=== PATIENT | female | born 1930 | race African-American/Black ===

== ENCOUNTER 2016-10-15 11:26 | Inpatient (IN) | payer OTHER ==
[~2016-10-15] VITALS: Ht 149.9 cm; Wt 77.4 kg
--- NOTE | ~2016-10-15 | HC ---
[facility] [place] [address] CONSULTATION Name: ALEXIS RAMOS Room #: 546-P [facility] IN .R.#: [id number] Admission: 10/15/16 Attend Phys: Steph Carvajal Discharge: 10/18/16 Date of : 32 Report #: [id number] THIS REPORT FOR: //name// CC: Doc Sampson HISTORY OF PRESENT ILLNESS: The patient is an 86-year-old female admitted with 2-4 week history of coughing. She was diagnosed with a COPD exacerbation. Placed on IV Solu-Medrol, pulmonary medicine has been involved. She has been on room air. We are seeing her in rehabilitation medicine consultation. PAST MEDICAL HISTORY: Includes hypothyroidism, arthritis. MEDICATIONS: Please see the full medication listing. SOCIAL HISTORY: She has been smoking a cigarette a day. Previously to that, she had been smoking a pack a day. She has concerns regarding her . No other social history is currently available. REVIEW OF SYSTEMS: No current complaints of chest pain, shortness of breath or abdominal discomfort. She complains of generalized overall weakness in that she is too weak to go home. PHYSICAL EXAMINATION: GENERAL: An 86-year-old female in no obvious distress. VITAL SIGNS: Last recorded temperature 98.1, pulse 97, respirations 16, blood pressure 119/67. NEUROLOGIC: No focal calf swelling, functional range of motion of both upper and lower extremity, strength is a grade 4-/5. DTRs are trace to 1. She does have some baseline anxiety. She is otherwise cooperative. Some chronic degenerative changes. ASSESSMENT: An 86-year-old white female with the following problem list: 1. Chronic obstructive pulmonary disease exacerbation. 2. Asthma. 3. Anxiety. 4. Hypothyroidism. 5. Restless leg syndrome. 6. Generalized weakness and fatigue. PLAN: Agree with PT and OT to evaluate. She is not currently on any nasal prong O2. Further social history will need to be obtained. We will follow up with you regarding her rehab therapy needs. [facility] [address] [place] [address] CONSULTATION Name: ALEXIS RAMOS Room #: 546-P [facility] IN .R.#: [id number] Admission: 10/15/16 Attend Phys: Steph Carvajal Discharge: 10/18/16 Date of : 32 Report #: [id number] Thank you for asking us to assist in this patient's care. <ELECTRONICALLY SIGNED> By: Del Castillo MD 10/19/16 1518 1107 1753 Del Castillo MD /nt
--- NOTE | ~2016-10-15 | HC ---
[facility] [place] [address] CONSULTATION Name: ALEXIS RAMOS Room #: 546-P ADM IN M.R.#: [id number] Admission: 10/15/16 Attend Phys: Steph Carvajal Discharge: Date of : 32 Report #: [id number] THIS REPORT FOR: //name// CC: Doc Sampson DATE OF SERVICE: 10/15/2016 DATE OF SERVICE: 10/15/2016. REASON FOR CONSULTATION: Exacerbation of chronic obstructive pulmonary disease. ASSESSMENT: 1. Exacerbation of chronic obstructive pulmonary disease. 2. Hypothyroidism. 3. Anxiety. 4. Arthritis. 5. Eosinophilia. PLAN: Agree with antibiotics, corticosteroids, aerosol therapy. Deep venous thrombosis prophylaxis. We will check D-dimer if positive, we will do a CT scan as outpatient, may consider a screening CT scan. HISTORY OF PRESENT ILLNESS: An 86-year-old female comes in, relates for the last 2-4 weeks has had cough, shortness breath and some sputum production. No fever, chills or sweats. No definite chest pain or palpitations. PHYSICAL EXAMINATION: VITAL SIGNS: Temperature 98.3, pulse 88, respirations 18, blood pressure 122/74. EYES: Negative icterus. NECK: Trachea midline. LUNGS: Showed wheeze bilaterally. HEART: Regular. ABDOMEN: Benign. EXTREMITIES: Show no cyanosis or edema. NEUROLOGIC: She is alert and oriented. ALLERGIES: PENICILLIN, ASPIRIN. HOME MEDICATIONS: Included albuterol, Celebrex, hydrocodone, lorazepam, Symbicort, Singulair, prednisone, levothyroxine. FAMILY HISTORY: with lung disease, no other family member that she could remember. SOCIAL HISTORY: Positive tobacco, still smokes a cigarette a day, in the past a [facility] [address] [place] [address] CONSULTATION Name: ALEXIS RAMOS Room #: 546-P ADM IN .R.#: [id number] Admission: 10/15/16 Attend Phys: Steph Carvajal Discharge: Date of : 32 Report #: [id number] pack a day. No significant ETOH. REVIEW OF SYSTEMS: No current visual problems. Positive wheeze, cough, shortness of breath. No hemoptysis, hematemesis or hematuria, occasional peripheral edema. No definite chest pain or palpitations. No dysuria. Labs, x-rays reviewed. <ELECTRONICALLY SIGNED> By: Rufina Chadwick MD 10/17/16 0931 1710 1213 Rufina Chadwick MD /nt
--- NOTE | ~2016-10-15 | H ---
[address] [address] HISTORY AND PHYSICAL Name: ALEXIS RAMOS Room #: 546-P [facility] IN M.R.#: [id number] Admission: 10/15/16 Attend Phys: Steph Carvajal Discharge: 10/18/16 Date of : 32 Report #: [id number] THIS REPORT FOR: //name// CC: Doc Sampson DATE OF SERVICE: 10/15/2016 CHIEF COMPLAINT: Shortness of breath. HISTORY OF PRESENT ILLNESS: The patient was admitted from the office by Dr. Sampson for shortness of breath. She had a couple of days of cough, congestion, and generalized weakness. She had been trying outpatient treatment with steroids, but she failed and was admitted to the hospital. PAST MEDICAL HISTORY: Hypertension and COPD. PAST SURGICAL HISTORY: Noncontributory. FAMILY HISTORY: Noncontributory. SOCIAL HISTORY: No current alcohol or tobacco use. ALLERGIES: See the list. MEDICATIONS: Please see the nursing notes. REVIEW OF SYSTEMS: She denied headache, chest pain, fever, chills, nausea, vomiting, diarrhea, or constipation. OBJECTIVE: VITAL SIGNS: Please see the admission ____ vital signs. GENERAL: She is awake and alert. HEAD AND NECK: Unremarkable. LUNGS: Clear. HEART: Regular. ABDOMEN: Soft. EXTREMITIES: No edema. ASSESSMENT: Chronic obstructive pulmonary disease exacerbation. PLAN: She has been treated with steroids, antibiotics, nebulized treatments and [address] [place] [address] HISTORY AND PHYSICAL Name: ALEXIS RAMOS Room #: 546-P [facility] IN M.R.#: [id number] Admission: 10/15/16 Attend Phys: Steph Carvajal Discharge: 10/18/16 Date of : 32 Report #: [id number] pulmonary assessment. She has generalized weakness and will require group home rehabilitation. <ELECTRONICALLY SIGNED> By: Del Calderon MD 10/19/16 0959 1615 1656 Del Calderon MD /nt
--- NOTE | ~2016-10-15 | EKG ---
[address] [place] [address] ELECTROCARDIOGRAM REPORT Name: KHUSHI RAMOSJORIDara Regalado Room #: 546-P ADM IN M.R.#: [id number] Admission: 10/15/16 Attend Phys: Steph Carvajal Discharge: Date of : 32 Report #: [id number] THIS REPORT FOR: //name// [facility] Test Date: 2016-10-15 Test Time: 12:28:47 Pat Name: ALEXIS RAMOS Department: Room: 546 Gender: F Yard Coordinator: Wilber ALAN : 1930 Requested By: Doc Sampson Order Number: [id number] MD: Joe Arthur Measurements Intervals [place] Rate: 64 P: 53 ID: 181 QRS: 20 QRSD: 84 T: 34 QT: 405 QTc: 418 Interpretive Statements Sinus rhythm Low voltage, extremity leads Compared to ECG 06/07/2004 16:11:49 No significant change was found Electronically Signed On 10-17-2016 15:39:12 CDT by Joe Arthur [email or web address] <ELECTRONICALLY SIGNED> By: Joe Arthur MD, [facility] 10/17/16 1539 1228 1228 Joe Arthur MD, [facility] /EPI
[2016-10-15 11:46] VITALS: BP 133/69
[2016-10-15] MEDS ORDERED: VENTOLIN HFA 1818 GM INH (11:58)
[2016-10-15] MEDS ORDERED: PREDNISONE 10 M10 MG PO (11:59)
[2016-10-15] MEDS ORDERED: ATIVAN0.5 MG PO (12:00)
[2016-10-15] MEDS ORDERED: SINGULAIR 10 MG10 M1 PO (12:01)
[2016-10-15] MEDS ORDERED: SYMBICORT160 MCG/4. INH (12:02)
[2016-10-15] MEDS ORDERED: LEVOTHYROXIN0.175 MG PO (12:03)
[2016-10-15] MEDS ORDERED: CELEBREX 200 M200 M1 PO (12:04)
[2016-10-15 13:20] LABS: ABSOLUTE NEUTROPHILS 3.9 thou/uL (1.4-8.2); BASOPHILS 1.2 % (0.0-2.0); EOSINOPHILS 5.6 % (0.0-3.0); LYMPHOCYTES 29.7 % (24.0-44.0); MCH 28.1 pg (26.0-34.0); MCHC 32.5 g/dL (28.0-37.0); MCV 86.6 fL (80.0-100.0); PLATELET COUNT 286 thou/uL (150-400); POLYS 56.5 % (36.0-66.0); RBC 4.97 mil/uL (4.20-5.00); WBC 6.9 thou/uL (4.0-11.0)
[2016-10-15 13:21] LABS: MANUAL DIFF NO
[2016-10-15 13:32] LABS: ALBUMIN 3.4 g/dL (3.4-5.0); CALCIUM 9.4 mg/dL (8.5-10.1); CREATININE 0.9 mg/dL (0.6-1.0); TOTAL BILIRUBIN 0.6 mg/dL (<0.1-1.0); TOTAL PROTEIN 7.1 g/dL (6.4-8.2)
[2016-10-15 15:22] VITALS: BP 122/74
[2016-10-15 19:58] VITALS: BP 113/65
[2016-10-16 04:37] VITALS: BP 117/47
[2016-10-16 07:42] VITALS: BP 146/89
[2016-10-16 15:26] VITALS: BP 119/70
[2016-10-16 19:35] VITALS: BP 144/84
[2016-10-17 08:00] VITALS: BP 122/66
[2016-10-17 15:57] VITALS: BP 102/41
[2016-10-17 20:25] VITALS: BP 106/43
[2016-10-18 03:41] VITALS: BP 125/71
[2016-10-18 07:50] VITALS: BP 119/66
[2016-10-18] MEDS ORDERED: AZITHROMYCIN 2250 MG PO (10:00)
[2016-10-18] MEDS ORDERED: MUCINEX TA600 MG/TA1 PO (10:01)
[2016-10-18] MEDS ORDERED: MIRALAX17 GM PO (10:01)
[2016-10-18] MEDS ORDERED: DUONEB 2.5-0.5 M3 ML INH (10:01)
[2016-10-18] MEDS ORDERED: PREDNISONE 20 M20 MG PO (10:03)
[2016-10-18 10:35] LABS: MAGNESIUM 2.1 mg/dL (1.8-2.4); POTASSIUM 4.2 mmol/L (3.5-5.1)
== END 2016-10-18 16:50 | DRG 190 ==
LOC: 5S 11:26
PROVIDERS: Internal Medicine; Internal Medicine Pulmonary Disease
DX: J44.1 Chronic obstructive pulmonary disease with (acute) exacerbation (principal); E43 Unspecified severe protein-calorie malnutrition; E03.9 Hypothyroidism, unspecified; F41.9 Anxiety disorder, unspecified; D72.1 Eosinophilia; F17.210 Nicotine dependence, cigarettes, uncomplicated; G25.81 Restless legs syndrome; I10 Essential (primary) hypertension; M19.011 Primary osteoarthritis, right shoulder; Z88.6 Allergy status to analgesic agent; Z88.0 Allergy status to penicillin; Z83.6 Family history of other diseases of the respiratory system; Z79.899 Other long term (current) drug therapy; Z68.34 Body mass index [BMI] 34.0-34.9, adult
CPT/HCPCS: 10089

== ENCOUNTER 2017-07-04 08:58 | Inpatient (IN) | payer OTHER, MEDICARE ==
[~2017-07-04] VITALS: Ht 152.4 cm; Wt 70.8 kg
--- NOTE | ~2017-07-04 | EKG ---
[address] [address] ELECTROCARDIOGRAM REPORT Name: KHUSHI RAMOSNORA Regalado Room #: 170-9 ADM IN .R.#: [id number] Admission: 07/04/17 Attend Phys: Griffin Bartlett MD Discharge: Date of : 32 Report #: [id number] THIS REPORT FOR: //name// [facility] ED Test Date: 2017-07-04 Test Time: 10:15:22 Pat Name: ALEXIS RAMOS Department: Room: 170 Gender: F Tool Analyst: [facility] : 1930 Requested By: Suraj Kahn Order Number: [id number] MD: Deangelo Perez Measurements Intervals [place] Rate: 67 P: 55 NM: 185 QRS: 9 QRSD: 87 T: 29 QT: 418 QTc: 442 Interpretive Statements Sinus rhythm Minimal ST elevation, anterolateral leads Compared to ECG 10/15/2016 12:28:47 ST (T wave) deviation now present Electronically Signed On 07-04-2017 15:05:32 CERTIFIED MORTICIAN by Deangelo Preez [email or web address] <ELECTRONICALLY SIGNED> By: Deangelo Perez MD 07/04/17 1505 1015 1015 Deangelo Perez MD /NASIMA
--- NOTE | ~2017-07-04 | HC ---
[facility] [place] [address] CONSULTATION Name: ALEXIS RAMOS Room #: 430-P ADM IN M.R.#: [id number] Admission: 07/04/17 Attend Phys: Griffin Bartlett MD Discharge: Date of : 32 Report #: [id number] THIS REPORT FOR: //name// CC: Griffin Espinoza DATE OF SERVICE: 07/04/2017 PULMONARY CONSULTATION PRIMARY CARE PHYSICIAN: Claudio Espinoza MD REFERRING PHYSICIAN: Griffin Bartlett MD REASON FOR REFERRAL: Dyspnea. HISTORY OF PRESENT ILLNESS: The patient is an 86-year-old -[place]ian female who presents to the Emergency Room with dyspnea. A pulmonary consultation was requested. The patient states that she has had asthma for many years. She has not seen a forestry farm laborer in the past. She has been cared for primarily by Dr. Espinoza. According to the patient, she is also on home oxygen at 2-3 liters. She notes that she has been more short of breath for a long time, but worsening more recently for the past week. She also complained of myalgias and weakness. She has some mild cough, but minimally productive of sputum. Otherwise, denies any night sweats, fever or chills. 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 PAST SURGICAL HISTORY: Include hysterectomy, partial thyroidectomy, leading to hypothyroidism, knee surgery, status post bilateral breast reduction in 1987. ALLERGIES: ASPIRIN CAUSES GI UPSET, PENICILLIN CAUSES HIVES. HOME MEDICATIONS: Ventolin, Singulair, Symbicort 160 mcg 2 puffs twice a day, Synthroid, Celebrex, Tylenol, Lasix, Neurontin, prednisone 10 mg once a day, Spiriva, Lexapro. FAMILY HISTORY: Noncontributory. SOCIAL HISTORY: She has smoked in the past, but has quit some time ago. [facility] [address] [place] [address] CONSULTATION Name: ALEXIS RAMOS Room #: 430-P [facility] IN M..#: [id number] Admission: 07/04/17 Attend Phys: Griffin Bartlett MD Discharge: Date of : 32 Report #: [id number] any alcohol use. REVIEW OF SYSTEMS: As mentioned above, otherwise 10-point system review negative. PHYSICAL EXAMINATION: GENERAL: She is awake, alert, in mild distress due to dyspnea. VITAL SIGNS: Temperature is 98 degrees Fahrenheit, pulse is 73, respiratory rate is 18, blood pressure 120/70 mmHg, saturation is 98%. HEENT: Normocephalic, atraumatic. NECK: Supple, without any lymphadenopathy or thyromegaly. CHEST: Breath sounds are fair with mild to moderate bilateral expiratory wheezes. No rales. CARDIOVASCULAR: Normal S1, S2. There is no murmur or gallop. There is no JVD. There is no carotid bruit. Pulses are 2+/4+ bilaterally. ABDOMEN: Soft, nontender, no organomegaly or masses felt. GENITOURINARY: Deferred. RECTAL: Deferred. EXTREMITIES: There is no edema, cyanosis or clubbing. LABORATORY DATA: Portable chest x-ray is clear. Influenza A and B antigen is negative. Electrolytes are normal. Renal function normal. WBC 5800, hemoglobin 13.0, platelets are normal. IMPRESSION: 1. Progressive dyspnea in this 86-year-old -[place]ian female with apparent long history of asthma. She has smoked in the past. Etiology likely due to exacerbation of asthma/chronic obstructive pulmonary disease overlap. 2. History of asthma/chronic obstructive pulmonary disease, apparently on oxygen dependent at home. According to the patient, she has been short of breath for some time for few years now whenever the patient is felt to be difficult to control asthma. May need further workup. 3. Remote history of tobacco use. 4. Hypothyroidism. 5. Chronic corticosteroids due to pulmonary impairment. 6. Moderate obesity whenever the patient may have subclinical reflux disease. RECOMMENDATION: We would suggest broad spectrum antibiotics, corticosteroids, bronchodilators. DVT and GI prophylaxis recommended. Once stable as an outpatient, I believe the patient would benefit from outpatient followup regarding questionable persistent bronchospasm. She should also be screened for possible sleep disorder given obesity along with chronic dyspnea. [address] [address] CONSULTATION Name: ALEXIS RAMOS Room #: 430-P [facility] IN .R.#: [id number] Admission: 07/04/17 Attend Phys: Griffin Bartlett MD Discharge: Date of : 32 Report #: [id number] Thank you for this consultation. <ELECTRONICALLY SIGNED> By: Kaveh Metz MD 07/04/17 2120 1725 Kaveh Metz MD /nt
[~2017-07-04 08:58] MED LIST: ATIVAN0.5 MG PO; AZITHROMYCIN 2250 MG PO; CELEBREX 200 M200 M1 PO; DUONEB 2.5-0.5 M3 ML INH; LASIX 20 MG TAB20 MG PO; LEVOTHYROXIN0.175 MG PO; LIDODERM 5%1 PATC1 TRANSDERM; MIRALAX17 GM PO; MUCINEX TA600 MG/TA1 PO; NORCO 5-325 TA1 EACH PO; PERCOCET 5-3251 EACH PO; POTASSIUM CHLO10 MEQ PO; PREDNISONE 10 M10 MG PO; PREDNISONE 20 M20 MG PO; SENNA8.6 MG PO; SINGULAIR 10 MG10 M1 PO; SYMBICORT160 MCG/4. INH; TRAZODONE HCL50 MG PO; TYLENOL325 MG PO; VENTOLIN HFA 1818 GM INH; VOLTAREN GEL 1100 G2 TOP
[2017-07-04 08:59] VITALS: BP 126/55
[2017-07-04 09:45] LABS: ABSOLUTE NEUTROPHILS 2.9 thou/uL (1.4-8.2); BASOPHILS 1.5 % (0.0-2.0); EOSINOPHILS 6.8 % (0.0-3.0); HEMATOCRIT 39.5 % (37.0-47.0); LYMPHOCYTES 32.5 % (24.0-44.0); MCV 84.9 fL (80.0-100.0); MONOCYTES 8.3 % (1.0-8.0); PLATELET COUNT 324 thou/uL (150-400); POLYS 50.9 % (36.0-66.0); RBC 4.65 mil/uL (4.20-5.00); RDW 15.2 % (10.5-14.5); WBC 5.8 thou/uL (4.0-11.0)
[2017-07-04 09:54] LABS: ANION GAP 6 mmol/L (7-16); BUN 12 mg/dL (7-18); CALCIUM 8.9 mg/dL (8.5-10.1); CHLORIDE 103 mmol/L (98-107); CO2 28 mmol/L (21-32); CREATININE 0.7 mg/dL (0.6-1.0); GLUCOSE 86 mg/dL (74-106); POTASSIUM 4.8 mmol/L (3.5-5.1); SODIUM 137 mmol/L (136-145)
[2017-07-04 10:04] LABS: TROPONIN-I < 0.04 ng/mL (<0.06)
[2017-07-04] MEDS ORDERED: GABAPENTIN 100100 MG PO (11:04)
[2017-07-04] MEDS ORDERED: LEXAPRO 10 MG T10 M2 PO (11:05)
[2017-07-04] MEDS ORDERED: SPIRIVA INH (11:05)
[2017-07-04] MEDS ORDERED: PREDNISONE 10 M10 MG PO (11:05)
[2017-07-04 18:44] VITALS: BP 102/66
[2017-07-04 20:23] VITALS: BP 106/62
[2017-07-04 20:38] VITALS: BP 127/80
[2017-07-05 04:03] VITALS: BP 139/78
[2017-07-05 06:41] LABS: HEMATOCRIT 38.5 % (37.0-47.0); HEMOGLOBIN 12.6 gm/dL (12.0-15.0); MCH 27.7 pg (26.0-34.0); MCHC 32.6 g/dL (28.0-37.0); MCV 84.9 fL (80.0-100.0); RBC 4.54 mil/uL (4.20-5.00); RDW 14.6 % (10.5-14.5)
[2017-07-05 06:51] LABS: CALCIUM 9.1 mg/dL (8.5-10.1); CREATININE 0.9 mg/dL (0.6-1.0); MAGNESIUM 2.1 mg/dL (1.8-2.4); POTASSIUM 4.3 mmol/L (3.5-5.1)
[2017-07-05 07:35] VITALS: BP 134/94
[2017-07-05 08:44] LABS: BE(vivo) 3.1 mmol/L (-2 to +3); HCO3 28.3 mmol/L (22.0-26.0); PCO2 45.1 mmHg (35.0-45.0); PO2 141.7 mmHg (80.0-100.0); pH 7.415 (7.360-7.450); sO2 98.8 % (92.0-98.0)
[2017-07-05 17:07] VITALS: BP 125/75
[2017-07-05 21:30] VITALS: BP 111/72
[2017-07-06 03:56] LABS: ALBUMIN 2.8 g/dL (3.4-5.0); MAGNESIUM 2.2 mg/dL (1.8-2.4); POTASSIUM 4.4 mmol/L (3.5-5.1); TOTAL BILIRUBIN 0.3 mg/dL (<0.1-1.0); TOTAL PROTEIN 6.3 g/dL (6.4-8.2)
[2017-07-06 04:10] LABS: HEMATOCRIT 38.1 % (37.0-47.0); HEMOGLOBIN 12.7 gm/dL (12.0-15.0); MCH 28.2 pg (26.0-34.0); MCHC 33.4 g/dL (28.0-37.0); MCV 84.5 fL (80.0-100.0); RBC 4.51 mil/uL (4.20-5.00); RDW 14.8 % (10.5-14.5); WBC 5.9 thou/uL (4.0-11.0)
[2017-07-06 04:26] VITALS: BP 126/73
[2017-07-06 04:48] LABS: TSH 0.618 uIU/mL (0.358-3.740)
[2017-07-06 08:18] VITALS: BP 120/67
[2017-07-06 20:00] VITALS: BP 97/49
[2017-07-06 22:11] LABS: GLYCOHEMOGLOBIN (HGB A1C) 5.5 % (4.8-5.6)
[2017-07-07 00:06] LABS: ADENOVIRUS Negative (Negative); INFLUENZA A Negative (Negative); INFLUENZA B Negative (Negative); METAPNEUMOVIRUS Negative (Negative); PARAINFLUENZA 1 Negative (Negative); PARAINFLUENZA 2 Negative (Negative); PARAINFLUENZA 3 Negative (Negative); RHINOVIRUS Negative (Negative); RSV A Negative (Negative); RSV B Negative (Negative)
[2017-07-07 04:00] VITALS: BP 136/66
[2017-07-07 06:35] LABS: HEMATOCRIT 37.7 % (37.0-47.0); HEMOGLOBIN 12.2 gm/dL (12.0-15.0); MCH 27.5 pg (26.0-34.0); MCHC 32.4 g/dL (28.0-37.0); MCV 84.9 fL (80.0-100.0); RBC 4.44 mil/uL (4.20-5.00); RDW 14.7 % (10.5-14.5); WBC 7.2 thou/uL (4.0-11.0)
[2017-07-07 06:44] LABS: CALCIUM 8.7 mg/dL (8.5-10.1); CREATININE 0.8 mg/dL (0.6-1.0); MAGNESIUM 2.2 mg/dL (1.8-2.4); POTASSIUM 4.4 mmol/L (3.5-5.1)
[2017-07-07 07:30] VITALS: BP 136/71
[2017-07-07 16:12] VITALS: BP 115/63
[2017-07-07 19:43] VITALS: BP 136/61
[2017-07-08 04:10] VITALS: BP 128/65
[2017-07-08 07:07] LABS: HEMATOCRIT 38.2 % (37.0-47.0); HEMOGLOBIN 12.6 gm/dL (12.0-15.0); MCV 85.1 fL (80.0-100.0); RBC 4.49 mil/uL (4.20-5.00); RDW 14.7 % (10.5-14.5); WBC 5.9 thou/uL (4.0-11.0)
[2017-07-08 07:23] VITALS: BP 136/74
[2017-07-08 07:23] LABS: CALCIUM 8.9 mg/dL (8.5-10.1); CREATININE 0.9 mg/dL (0.6-1.0); MAGNESIUM 2.4 mg/dL (1.8-2.4); POTASSIUM 4.2 mmol/L (3.5-5.1)
[2017-07-08] MEDS ORDERED: MUCINEX600 MG PO (12:28)
[2017-07-08] MEDS ORDERED: VITAMIN D1000 UNI1 PO (12:29)
[2017-07-08] MEDS ORDERED: PREDNISONE 10 M10 MG PO (12:31)
[2017-07-08] MEDS ORDERED: LEVAQUIN 750 M750 MG PO (12:44)
== END 2017-07-08 15:02 | DRG 189 ==
LOC: ER 08:58 → 4E 10:50 → EROBS 10:50 → 4E 20:25
PROVIDERS: Internal Medicine; Internal Medicine Pulmonary Disease; Physician Assistant; Registered Nurse
DX: J96.20 Acute and chronic respiratory failure, unspecified whether with hypoxia or hypercapnia (principal); J44.1 Chronic obstructive pulmonary disease with (acute) exacerbation; F11.20 Opioid dependence, uncomplicated; E03.9 Hypothyroidism, unspecified; Z96.659 Presence of unspecified artificial knee joint; G89.29 Other chronic pain; M54.9 Dorsalgia, unspecified; E66.01 Morbid (severe) obesity due to excess calories; F17.210 Nicotine dependence, cigarettes, uncomplicated; I10 Essential (primary) hypertension; F32.9 Major depressive disorder, single episode, unspecified; J06.9 Acute upper respiratory infection, unspecified; M25.812 Other specified joint disorders, left shoulder; Z90.710 Acquired absence of both cervix and uterus; Z88.6 Allergy status to analgesic agent; Z88.0 Allergy status to penicillin; Z68.30 Body mass index [BMI] 30.0-30.9, adult; Z79.899 Other long term (current) drug therapy; Z79.52 Long term (current) use of systemic steroids
CPT/HCPCS: 10084

== ENCOUNTER 2017-08-16 15:20 | Inpatient (IN) | payer OTHER, MEDICARE ==
[~2017-08-16] VITALS: Ht 149.9 cm; Wt 78.9 kg
--- NOTE | ~2017-08-16 | HC ---
[facility] [place] [address] CONSULTATION Name: ALEXIS RAMOS Room #: 354-P ADM IN ..#: [id number] Admission: 08/16/17 Attend Phys: Sergei Gonzales DO Discharge: Date of : 32 Report #: [id number] THIS REPORT FOR: //name// CC: Sergei Espinoza DATE OF SERVICE: 08/17/2017 PULMONARY CONSULTATION REFERRAL PHYSICIAN: Dr. Gonzales. REASON FOR REFERRAL: Dyspnea. HISTORY OF PRESENT ILLNESS: The patient is an 87-year-old female who presents to the Emergency Room with dyspnea. A pulmonary consultation was requested. The patient is known to this physician. She was last hospitalized in June of this year with exacerbation of asthma/COPD. She states that she was doing fairly well until for the past week when she has got increasingly short of breath. When she was last hospitalized, she was transferred to [facility]. She was subsequently discharged home about a week ago. For the past week, she has noticed increasing dyspnea, bronchospasm. Otherwise, she denies any fever, night sweats, chills, chest pain or productive cough. Chest x-ray on admission was clear. PAST MEDICAL HISTORY: Notable for asthma/COPD overlap, the patient has smoked in the past, but quit many years ago, chronic back pain due to sciatica, on chronic narcotics, hypothyroidism. PAST SURGICAL HISTORY: Include hysterectomy, partial thyroidectomy, past knee surgery, bilateral breast reduction in 1997. ALLERGIES: ASPIRIN, WHICH CAUSES GI UPSET, PENICILLIN CAUSES HIVES. MEDICATIONS: Reviewed in the MAR. FAMILY HISTORY: Noncontributory. SOCIAL HISTORY: The patient has smoked, but quit many years ago. Otherwise, denies any alcohol use. [facility] [address] [place] [address] CONSULTATION Name: KHUSHI RAMOSJORIE Fabricio Room #: 354-P [facility] IN ..#: [id number] Admission: 08/16/17 Attend Phys: Sergei Gonzales DO Discharge: Date of : 32 Report #: [id number] REVIEW OF SYSTEMS: As mentioned above, otherwise 10-point system review negative. PHYSICAL EXAMINATION: GENERAL: She is awake, alert, in no apparent distress. VITAL SIGNS: Temperature 97.8 degrees Fahrenheit, pulse is 76, respiratory rate is 20, blood pressure 154/96 mmHg, saturation is 100%. HEENT: Normocephalic, atraumatic. NECK: Supple, no lymphadenopathy or thyromegaly. CHEST: Breath sounds are fair bilaterally with mild expiratory wheezes. CARDIOVASCULAR: Normal S1, S2. There are no murmurs or gallop. There is no JVD. There is no carotid bruit. Pulses are 2+/4+ bilaterally. ABDOMEN: Soft, nontender, no organomegaly or masses felt. GENITOURINARY: Deferred. RECTAL: Deferred. EXTREMITIES: There is no edema, cyanosis or clubbing. LABORATORY DATA: Chest x-ray again as mentioned above is clear. A 2D echocardiogram was grossly unremarkable. Ejection fraction of 55-60%. Pulmonary artery pressure is 30-35. Influenza A and B is negative. Ultrasound of the lower extremities negative. EKG was unremarkable. Electrolytes are normal. Liver functions are normal. WBC 7500, hemoglobin 11.6, platelets normal, no evidence of bandemia, increased eosinophil count is noted. IMPRESSION: 1. Acute hypoxic respiratory failure in this 87-year-old female due to exacerbation of chronic obstructive pulmonary disease/asthma overlap. No evidence of obvious pneumonia at this time. 2. Remote history of tobacco use. 3. Chronic steroids. 4. Hypothyroidism. RECOMMENDATION: I agree with plans, corticosteroids, bronchodilators and broad spectrum antibiotics. Deep venous thrombosis and gastrointestinal prophylaxis recommended. Thank you for this consultation. <ELECTRONICALLY SIGNED> By: Kaveh Metz MD 08/18/17 1311 1523 1824 Kaveh Metz MD /nt
--- NOTE | ~2017-08-16 | EKG ---
[place] [address] [facility] [place] [address] ELECTROCARDIOGRAM REPORT Name: ALEXIS RAMOS Room #: [facility]#: [id number] Admission: 08/16/17 Attend Phys: Discharge: Date of : 32 Report #: [id number] THIS REPORT FOR: //name// [facility] ED Test Date: 2017-08-16 Test Time: 16:27:25 Pat Name: ALEXIS RAMOS Department: Room: Gender: F Drum Sprayer: MZOOK : 1930 Requested By: Montserrat Sampson Order Number: [id number] MD: Joe Arthur Measurements Intervals [place] Rate: 97 P: 63 MD: 164 QRS: 11 QRSD: 78 T: 31 QT: 349 QTc: 444 Interpretive Statements Sinus rhythm No significant abnormality Compared to ECG 07/04/2017 10:15:22 No significant change was. Electronically Signed On 08-16-2017 17:51:22 CDT by Joe Arthur [email or web address] <ELECTRONICALLY SIGNED> By: Joe Arthur MD, [facility] 08/16/17 1751 1627 1627 Joe Arthur MD, FACC /EPI
--- NOTE | ~2017-08-16 | 2DMMODE ---
[facility] [address] [place] [address] 2 D/M-MODE ECHOCARDIOGRAM Name: ALEXIS RAMOS Room #: 354-P [facility] IN ..#: [id number] Admission: 08/16/17 Attend Phys: Sergei Gonzales, Discharge: Date of : 32 Date of Service: 08/17/17 0957 Report #: [id number] THIS REPORT FOR: //name// APPROVED REPORT Study performed: 08/17/2017 07:59:45 EXAM: Comprehensive 2D, Doppler, and color-flow Echocardiogram Patient Location: Bedside Room #: 354 Status: routine BSA: 1.74 HR: 65 bpm BP: 159/87 mmHg Rhythm: NSR Other Information Study Quality: Good Indications Edema, short of air. Hx: COPD 2D Dimensions RVDd: 36.71 mm LVEF(%): 64.73 (>50%) IVSd: 10.44 (7-11mm) LVOT Diam: 19.91 (18-24mm) LVDd: 43.05 mm PWd: 10.49 (7-11mm) Ascending Ao: 33.65 (22-36mm) LVDs: 27.94 (25-40mm) Aortic Root: 35.73 mm Larsen's LVEF: 64.73 % Volumes Left Atrial Volume (Systole) Single Plane 4CH: 54.64 mL Single Plane 2CH: 48.30 mL LA ESV Index: 33.00 mL/m2 Aortic Valve AoV Peak Ortiz.: 1.50 m/s AO Peak Gr.: 9.74 mmHg LVOT Max P.09 mmHg LVOT Max V: 1.01 m/s BETHANY Vmax: 2.10 cm2 Mitral Valve E/A Ratio: 0.9 MV Decel. Time: 204.87 ms [facility] [place] [address] 2 D/M-MODE ECHOCARDIOGRAM Name: ALEXIS RAMOS Room #: 354-P [facility] IN ..#: [id number] Admission: 08/16/17 Attend Phys: Sergei Gonzales, Discharge: Date of : 32 Date of Service: 08/17/17 0957 Report #: [id number] MV E Max Ortiz.: 0.97 m/s MV A Ortiz.: 1.11 m/s MV PHT: 59.41 ms IVRT: 87.66 ms Pulmonary Valve PV Peak Ortiz.: 0.93 m/s PV Peak Gr.: 3.45 mmHg Pulmonary Vein P Vein S: 0.79 m/s P Vein A: 0.38 m/s P Vein D: 0.60 m/s P Vein A Dur.: 133.8 msec P Vein S/D Ratio: 1.32 Tricuspid Valve TR Peak Ortiz.: 2.35 m/s RAP Estimate: 10.00 mmHg TR Peak Gr.: 22.13 mmHg PA Pressure: 32.00 mmHg Left Ventricle The left ventricle is normal size. There is normal LV segmental wall motion. There is normal left ventricular wall thickness. Left ventricular systolic function is normal. LVEF is 55-60%. Mild diastolic dysfunction is present (impaired relaxation pattern). Right Ventricle The right ventricle is normal size. The right ventricular systolic function is normal. Atria Left atrium is at the upper limits of normal. Right atrium is at the upper limits of normal. Aortic Valve The Aortic valve is sclerotic. No aortic regurgitation is present. There is no aortic valvular stenosis. Mitral Valve The mitral valve is normal in structure. Trace mitral regurgitation. No evidence of mitral valve stenosis. Tricuspid Valve The tricuspid valve is normal in structure. Trace tricuspid regurgitation. Estimated PAP is 30-35mmHg. Pulmonic Valve [address] [address] 2 D/M-MODE ECHOCARDIOGRAM Name: ALEXIS RAMOS Room #: 354-P [facility] IN [facility]#: [id number] Admission: 08/16/17 Attend Phys: Sergei Gonzales, Discharge: Date of : 32 Date of Service: 08/17/17 0957 Report #: [id number] The pulmonary valve is normal in structure. Trace to mild pulmonic regurgitation. Great Vessels The aortic root is normal in size. The ascending aorta is normal in size. IVC measures at the upper limits of normal and collapses <50% with inspiration. Pericardium There is no pericardial effusion. <Conclusion> The left ventricle is normal size. LVEF is 55-60%. The Aortic valve is sclerotic. The mitral valve is normal in structure. Trace mitral regurgitation. The tricuspid valve is normal in structure. Trace tricuspid regurgitation. Estimated PAP is 30-35mmHg. The pulmonary valve is normal in structure. Trace to mild pulmonic regurgitation. There is no pericardial effusion. <ELECTRONICALLY SIGNED> By: Josesito Colmenares MD 08/17/17 0957 0957 Josesito Colmenares MD /INF
[~2017-08-16 15:20] MED LIST changes: +GABAPENTIN 100100 MG PO; +LEVAQUIN 750 M750 MG PO; +LEXAPRO 10 MG T10 M2 PO; +MUCINEX600 MG PO; +SPIRIVA INH; +VITAMIN D1000 UNI1 PO
[2017-08-16 15:28] VITALS: BP 128/74
[2017-08-16 16:41] LABS: ABSOLUTE NEUTROPHILS 4.4 thou/uL (1.4-8.2); BASOPHILS 1.5 % (0.0-2.0); EOSINOPHILS 8.2 % (0.0-3.0); HEMATOCRIT 35.7 % (37.0-47.0); HEMOGLOBIN 11.6 gm/dL (12.0-15.0); LYMPHOCYTES 19.5 % (24.0-44.0); MCH 27.6 pg (26.0-34.0); MCHC 32.4 g/dL (28.0-37.0); MCV 85.2 fL (80.0-100.0); PLATELET COUNT 323 thou/uL (150-400); POLYS 58.8 % (36.0-66.0); RBC 4.19 mil/uL (4.20-5.00); RDW 16.1 % (10.5-14.5); WBC 7.5 thou/uL (4.0-11.0)
[2017-08-16 17:00] LABS: ANION GAP 4 mmol/L (7-16); BUN 7 mg/dL (7-18); CALCIUM 9.1 mg/dL (8.5-10.1); CHLORIDE 106 mmol/L (98-107); CO2 30 mmol/L (21-32); CREATININE 0.7 mg/dL (0.6-1.0); GLUCOSE 86 mg/dL (74-106); POTASSIUM 3.6 mmol/L (3.5-5.1); SODIUM 140 mmol/L (136-145)
[2017-08-16 17:07] LABS: ALBUMIN 3.1 g/dL (3.4-5.0); SGOT 18 U/L (15-37); SGPT 17 U/L (30-65); TOTAL BILIRUBIN 0.3 mg/dL (<0.1-1.0); TOTAL PROTEIN 6.7 g/dL (6.4-8.2); TROPONIN-I < 0.04 ng/mL (<0.06)
[2017-08-16 19:46] VITALS: BP 112/53
[2017-08-17 00:29] VITALS: BP 137/70
[2017-08-17 04:12] VITALS: BP 159/87
[2017-08-17 05:31] LABS: BASOPHILS 0.2 % (0.0-2.0); HEMATOCRIT 37.4 % (37.0-47.0); LYMPHOCYTES 7.6 % (24.0-44.0); MCH 27.6 pg (26.0-34.0); MCHC 32.2 g/dL (28.0-37.0); MCV 85.8 fL (80.0-100.0); PLATELET COUNT 328 thou/uL (150-400); POLYS 91.2 % (36.0-66.0); RBC 4.36 mil/uL (4.20-5.00); RDW 15.7 % (10.5-14.5); WBC 6.6 thou/uL (4.0-11.0)
[2017-08-17 05:44] LABS: CREATININE 1.1 mg/dL (0.6-1.0); POTASSIUM 4.2 mmol/L (3.5-5.1)
[2017-08-17 08:00] VITALS: BP 154/96
[2017-08-17 16:00] VITALS: BP 149/84
[2017-08-17 19:19] VITALS: BP 142/75
[2017-08-18 03:25] VITALS: BP 138/84
[2017-08-18 07:07] LABS: HEMATOCRIT 34.9 % (37.0-47.0); HEMOGLOBIN 11.4 gm/dL (12.0-15.0); MCH 27.5 pg (26.0-34.0); MCHC 32.6 g/dL (28.0-37.0); MCV 84.5 fL (80.0-100.0); RBC 4.14 mil/uL (4.20-5.00); RDW 15.7 % (10.5-14.5); WBC 8.4 thou/uL (4.0-11.0)
[2017-08-18 07:23] LABS: CALCIUM 8.8 mg/dL (8.5-10.1); CREATININE 0.9 mg/dL (0.6-1.0); POTASSIUM 4.1 mmol/L (3.5-5.1)
[2017-08-18 07:40] VITALS: BP 164/86
[2017-08-18 11:35] VITALS: BP 150/79
[2017-08-18 13:39] VITALS: BP 127/74
[2017-08-18 20:28] VITALS: BP 130/61
[2017-08-19 08:10] VITALS: BP 127/67
[2017-08-19 20:33] VITALS: BP 119/63
[2017-08-20 07:15] VITALS: BP 147/84
[2017-08-20 07:15] LABS: ABSOLUTE NEUTROPHILS 6.9 thou/uL (1.4-8.2); HEMATOCRIT 37.3 % (37.0-47.0); LYMPHOCYTES 5.4 % (24.0-44.0); MCH 27.3 pg (26.0-34.0); MCHC 32.1 g/dL (28.0-37.0); MCV 85.1 fL (80.0-100.0); MONOCYTES 3.3 % (1.0-8.0); PLATELET COUNT 309 thou/uL (150-400); POLYS 91.3 % (36.0-66.0); RBC 4.38 mil/uL (4.20-5.00); RDW 15.8 % (10.5-14.5); WBC 7.5 thou/uL (4.0-11.0)
[2017-08-20 07:20] LABS: CALCIUM 8.7 mg/dL (8.5-10.1); POTASSIUM 4.3 mmol/L (3.5-5.1)
[2017-08-20] MEDS ORDERED: AMLODIPINE BESY10 MG PO (07:37)
[2017-08-20 09:54] VITALS: BP 147/84
[2017-08-20 10:52] VITALS: BP 147/84
== END 2017-08-20 14:24 | disposition home health service (06) | DRG 291 ==
LOC: ER 15:20 → 3W 18:23 → EROBS 18:23 → 3W 20:14 → SICU 08-18 13:44
PROVIDERS: Family Medicine; Internal Medicine Pulmonary Disease; Physician Assistant
PROC: B24BZZ4 Ultrasonography of Heart with Aorta, Transesophageal (ICD-10-PCS; principal; 2017-08-17)
DX: I50.31 Acute diastolic (congestive) heart failure (principal); J96.01 Acute respiratory failure with hypoxia; J44.1 Chronic obstructive pulmonary disease with (acute) exacerbation; E89.0 Postprocedural hypothyroidism; F32.9 Major depressive disorder, single episode, unspecified; Z87.891 Personal history of nicotine dependence; Z90.710 Acquired absence of both cervix and uterus; Z79.899 Other long term (current) drug therapy; Z88.0 Allergy status to penicillin; Z88.6 Allergy status to analgesic agent
CPT/HCPCS: 10879; 15002

== ENCOUNTER 2017-09-01 08:17 | Inpatient (IN) | payer OTHER, MEDICARE ==
[~2017-09-01] VITALS: Ht 149.9 cm; Wt 81.2 kg
[2017-09-01] VITALS (8 sets, daily range): BP systolic 124–159; BP diastolic 69–89
--- NOTE | ~2017-09-01 | EKG ---
[place] [address] [facility] [facility] [place] [address] ELECTROCARDIOGRAM REPORT Name: KHUSHI RAMOSJORAMON Regalado Room #: [facility]#: [id number] Admission: 09/01/17 Attend Phys: Discharge: Date of : 32 Report #: [id number] THIS REPORT FOR: //name// [facility] ED Test Date: 2017-09-01 Test Time: 08:35:17 Pat Name: ALEXIS RAMOS Department: Room: Gender: F Administrative Resources Associate: SHELLY : 1930 Requested By: Jessy Jacobson Order Number: [id number] MD: Joe Arthur Measurements Intervals [place] Rate: 85 P: 59 [place]: 169 QRS: 7 QRSD: 75 T: 34 QT: 373 QTc: 444 Interpretive Statements Sinus rhythm No significant abnormality Compared to ECG 08/16/2017 16:27:25 No significant changes Electronically Signed On 09-01-2017 8:57:54 CDT by Joe Arthur [email or web address] <ELECTRONICALLY SIGNED> By: Joe Arthur MD, [facility] 09/01/17 0857 0835 0835 Joe Arthur MD, FACC /EPI
--- NOTE | ~2017-09-01 | EKG ---
[place] [address] [facility] [place] [address] ELECTROCARDIOGRAM REPORT Name: KHUSHI RAMOSNORA Regalado Room #: 352-P ADM IN M.R.#: [id number] Admission: 09/01/17 Attend Phys: Sergei Gonzales DO Discharge: Date of : 32 Report #: [id number] THIS REPORT FOR: //name// [facility] Test Date: 2017-09-01 Test Time: 16:02:58 Pat Name: ALEXIS RAMOS Department: Room: [facility] Gender: F Rand Butter: nereida : 1930 Requested By: Rufina Chadwick Order Number: [id number] MD: Joe Arthur Measurements Intervals [place] Rate: 81 P: 60 [place]: 175 QRS: -11 QRSD: 83 T: 32 QT: 392 QTc: 455 Interpretive Statements Sinus rhythm Poor R wave progression Compared to ECG 09/01/2017 08:35:17 No significant changes Electronically Signed On 09-02-2017 8:35:15 CDT by Joe Arthur [email or web address] <ELECTRONICALLY SIGNED> By: Joe Arthur MD, [facility] 09/02/17 0835 01 01 Joe Arthur MD, [facility] /EPI
[~2017-09-01 08:17] MED LIST changes: +AMLODIPINE BESY10 MG PO
[2017-09-01 08:51] LABS: ABSOLUTE NEUTROPHILS 6.4 thou/uL (1.4-8.2); BASOPHILS 1.1 % (0.0-2.0); EOSINOPHILS 5.2 % (0.0-3.0); HEMATOCRIT 35.6 % (37.0-47.0); HEMOGLOBIN 11.8 gm/dL (12.0-15.0); LYMPHOCYTES 15.3 % (24.0-44.0); MCHC 33.2 g/dL (28.0-37.0); MCV 84.3 fL (80.0-100.0); MONOCYTES 6.9 % (1.0-8.0); PLATELET COUNT 216 thou/uL (150-400); POLYS 71.5 % (36.0-66.0); RBC 4.21 mil/uL (4.20-5.00); RDW 15.7 % (10.5-14.5); WBC 8.9 thou/uL (4.0-11.0)
[2017-09-01 08:59] LABS: ANION GAP 6 mmol/L (7-16); BUN 9 mg/dL (7-18); CHLORIDE 104 mmol/L (98-107); CO2 30 mmol/L (21-32); CREATININE 0.9 mg/dL (0.6-1.0); GLUCOSE 105 mg/dL (74-106); POTASSIUM 3.9 mmol/L (3.5-5.1); SODIUM 140 mmol/L (136-145)
[2017-09-01 09:08] LABS: TROPONIN-I < 0.04 ng/mL (<0.06)
[2017-09-01 11:13] LABS: BE(vivo) 1.4 mmol/L (-2 to +3); HCO3 26.9 mmol/L (22.0-26.0); PCO2 46.1 mmHg (35.0-45.0); PO2 77.9 mmHg (80.0-100.0); pH 7.384 (7.360-7.450); sO2 95.3 % (92.0-98.0)
[2017-09-02 03:10] VITALS: BP 159/88
[2017-09-02 05:21] LABS: ABSOLUTE NEUTROPHILS 5.7 thou/uL (1.4-8.2); BASOPHILS 0.1 % (0.0-2.0); HEMATOCRIT 34.9 % (37.0-47.0); HEMOGLOBIN 11.5 gm/dL (12.0-15.0); LYMPHOCYTES 8.5 % (24.0-44.0); MCH 27.9 pg (26.0-34.0); MCHC 32.8 g/dL (28.0-37.0); MCV 85.1 fL (80.0-100.0); MONOCYTES 1.1 % (1.0-8.0); PLATELET COUNT 207 thou/uL (150-400); POLYS 90.3 % (36.0-66.0); RBC 4.11 mil/uL (4.20-5.00); RDW 15.6 % (10.5-14.5); WBC 6.3 thou/uL (4.0-11.0)
[2017-09-02 05:32] LABS: CREATININE 0.9 mg/dL (0.6-1.0); POTASSIUM 4.5 mmol/L (3.5-5.1)
[2017-09-02 07:21] VITALS: BP 143/72
[2017-09-02 11:17] VITALS: BP 133/67
[2017-09-02 15:11] VITALS: BP 134/61
[2017-09-02 19:00] VITALS: BP 129/64
[2017-09-03 03:20] VITALS: BP 142/80
[2017-09-03 04:37] LABS: ABSOLUTE NEUTROPHILS 8.6 thou/uL (1.4-8.2); BASOPHILS 0.1 % (0.0-2.0); HEMATOCRIT 33.9 % (37.0-47.0); HEMOGLOBIN 11.2 gm/dL (12.0-15.0); LYMPHOCYTES 5.9 % (24.0-44.0); MCHC 32.9 g/dL (28.0-37.0); MCV 85.1 fL (80.0-100.0); MONOCYTES 5.1 % (1.0-8.0); PLATELET COUNT 222 thou/uL (150-400); POLYS 88.9 % (36.0-66.0); RBC 3.99 mil/uL (4.20-5.00); RDW 15.4 % (10.5-14.5); WBC 9.7 thou/uL (4.0-11.0)
[2017-09-03 04:46] LABS: CALCIUM 9.2 mg/dL (8.5-10.1); CREATININE 0.8 mg/dL (0.6-1.0); POTASSIUM 4.1 mmol/L (3.5-5.1)
[2017-09-03 07:24] VITALS: BP 131/68
[2017-09-03 11:37] VITALS: BP 127/58
[2017-09-03 14:59] VITALS: BP 112/58
[2017-09-03] MEDS ORDERED: ALBUTEROL2.5 MG/0.5 INH (15:54)
[2017-09-03] MEDS ORDERED: PREDNISONE 10 M10 MG PO (15:54)
[2017-09-03 19:55] VITALS: BP 128/69
[2017-09-04 07:31] VITALS: BP 179/96
[2017-09-04 07:59] LABS: ABSOLUTE NEUTROPHILS 7.9 thou/uL (1.4-8.2); BASOPHILS 0.1 % (0.0-2.0); HEMATOCRIT 33.5 % (37.0-47.0); HEMOGLOBIN 11.1 gm/dL (12.0-15.0); LYMPHOCYTES 7.2 % (24.0-44.0); MCH 28.1 pg (26.0-34.0); MCV 85.1 fL (80.0-100.0); MONOCYTES 4.4 % (1.0-8.0); PLATELET COUNT 245 thou/uL (150-400); POLYS 88.3 % (36.0-66.0); RBC 3.94 mil/uL (4.20-5.00); RDW 15.5 % (10.5-14.5); WBC 8.9 thou/uL (4.0-11.0)
[2017-09-04 08:06] LABS: CALCIUM 8.8 mg/dL (8.5-10.1); CREATININE 0.8 mg/dL (0.6-1.0); POTASSIUM 4.1 mmol/L (3.5-5.1)
[2017-09-04 19:48] VITALS: BP 122/61
[2017-09-05 07:10] VITALS: BP 117/69
== END 2017-09-05 10:45 | DRG 189 ==
LOC: ER 08:17 → 3W 10:17 → EROBS 10:17 → 3W 11:22 → SICU 09-03 17:51
PROVIDERS: Emergency Medicine; Family Medicine
DX: J96.01 Acute respiratory failure with hypoxia (principal); J44.1 Chronic obstructive pulmonary disease with (acute) exacerbation; E89.0 Postprocedural hypothyroidism; Z96.659 Presence of unspecified artificial knee joint; M54.30 Sciatica, unspecified side; I50.9 Heart failure, unspecified; J06.9 Acute upper respiratory infection, unspecified; F32.9 Major depressive disorder, single episode, unspecified; F41.9 Anxiety disorder, unspecified; Z90.710 Acquired absence of both cervix and uterus; Z88.6 Allergy status to analgesic agent; Z88.0 Allergy status to penicillin; Z87.891 Personal history of nicotine dependence; Z79.899 Other long term (current) drug therapy
CPT/HCPCS: 10779; 10879; 15002

== ENCOUNTER 2017-09-28 10:34 | Emergency (ER) | payer OTHER, MEDICARE ==
[~2017-09-28] VITALS: Ht 149.9 cm; Wt 71.2 kg
--- NOTE | ~2017-09-28 | EKG ---
[address] [address] ELECTROCARDIOGRAM REPORT Name: KHUSHI RAMOSNORA Regalado Room #: [facility]#: [id number] Admission: 09/28/17 Attend Phys: Discharge: 09/28/17 Date of : 34 Report #: [id number] THIS REPORT FOR: //name// [facility] ED Test Date: 2017-09-28 Test Time: 10:41:50 Pat Name: ALEXIS RAMOS Department: Room: Gender: F Soundscriber Mechanic: DELILAH : 1930 Requested By: Idris Clemons Order Number: [id number] MD: Deangelo Perez Measurements Intervals [place] Rate: 81 P: 73 NM: 178 QRS: 17 QRSD: 79 T: 39 QT: 385 QTc: 447 Interpretive Statements Sinus rhythm Borderline low voltage, extremity leads Compared to ECG 09/01/2017 16:02:58 Poor R-wave progression no longer present Electronically Signed On 09-28-2017 16:56:51 CDT by Deangelo Perez [email or web address] <ELECTRONICALLY SIGNED> By: Deangelo Perez MD 09/28/17 1656 1041 1041 Deangelo Perez MD /NASIMA
[~2017-09-28 10:34] MED LIST changes: +ALBUTEROL2.5 MG/0.5 INH
[2017-09-28 11:13] LABS: ABSOLUTE NEUTROPHILS 3.5 thou/uL (1.4-8.2); BASOPHILS 1.1 % (0.0-2.0); EOSINOPHILS 6.7 % (0.0-3.0); HEMATOCRIT 35.9 % (37.0-47.0); HEMOGLOBIN 11.9 gm/dL (12.0-15.0); MCH 27.9 pg (26.0-34.0); MCV 84.5 fL (80.0-100.0); MONOCYTES 9.5 % (1.0-8.0); PLATELET COUNT 290 thou/uL (150-400); POLYS 54.7 % (36.0-66.0); RBC 4.25 mil/uL (4.20-5.00); RDW 15.7 % (10.5-14.5); WBC 6.3 thou/uL (4.0-11.0)
[2017-09-28 11:22] LABS: ANION GAP 3 mmol/L (7-16); BUN 12 mg/dL (7-18); CHLORIDE 104 mmol/L (98-107); CO2 30 mmol/L (21-32); CREATININE 0.7 mg/dL (0.6-1.0); GLUCOSE 90 mg/dL (74-106); POTASSIUM 4.4 mmol/L (3.5-5.1); SODIUM 137 mmol/L (136-145)
[2017-09-28 11:31] LABS: TROPONIN-I < 0.04 ng/mL (<0.06)
[2017-09-28] MEDS ORDERED: DOXYCYCLINE 10100 MG PO (12:04)
[2017-09-28] MEDS ORDERED: ULTRAM 50MG TAB50 MG PO (12:04)
[2017-09-28 12:24] VITALS: BP 134/63
== END 2017-09-28 12:28 | disposition home or self-care (01) ==
LOC: ER 10:34
PROVIDERS: Nurse Practitioner
DX: R07.89 Other chest pain (principal); J44.1 Chronic obstructive pulmonary disease with (acute) exacerbation; E03.9 Hypothyroidism, unspecified; I50.9 Heart failure, unspecified; F17.210 Nicotine dependence, cigarettes, uncomplicated; Z90.89 Acquired absence of other organs; Z88.6 Allergy status to analgesic agent; Z88.0 Allergy status to penicillin

== ENCOUNTER 2018-01-29 14:00 | Emergency (ER) | payer OTHER, MEDICARE ==
[~2018-01-29] VITALS: Ht 149.9 cm; Wt 72.6 kg
[~2018-01-29 14:00] MED LIST changes: +DOXYCYCLINE 10100 MG PO; +ULTRAM 50MG TAB50 MG PO
[2018-01-29 14:01] VITALS: BP 123/86
[2018-01-29] MEDS ORDERED: IBUPROFEN 400400 M2 PO (14:36)
[2018-01-29] MEDS ORDERED: ROBAXIN500 MG PO (14:36)
[2018-01-29] MEDS ORDERED: TRAMADOL 50 MG50 MG PO (14:36)
== END 2018-01-29 14:53 | disposition home or self-care (01) ==
LOC: ER 14:00
DX: M43.6 Torticollis (principal); E03.9 Hypothyroidism, unspecified; J44.1 Chronic obstructive pulmonary disease with (acute) exacerbation; Z87.891 Personal history of nicotine dependence; Z88.0 Allergy status to penicillin; Z88.6 Allergy status to analgesic agent; Z90.710 Acquired absence of both cervix and uterus; Z90.10 Acquired absence of unspecified breast and nipple; Z90.89 Acquired absence of other organs; Z96.659 Presence of unspecified artificial knee joint

== ENCOUNTER 2018-07-24 16:23 | Inpatient (IN) | payer OTHER, MEDICARE ==
[~2018-07-24] VITALS: Ht 152.4 cm; Wt 71.2 kg
[2018-07-24 16:23] VITALS: BP 124/74
[~2018-07-24 16:23] MED LIST changes: +IBUPROFEN 400400 M2 PO; +ROBAXIN500 MG PO; +TRAMADOL 50 MG50 MG PO
[2018-07-24 17:29] LABS: ABSOLUTE NEUTROPHILS 3.3 thou/uL (1.4-8.2); BASOPHILS 1.3 % (0.0-2.0); EOSINOPHILS 5.5 % (0.0-3.0); HEMATOCRIT 38.4 % (37.0-47.0); HEMOGLOBIN 12.8 gm/dL (12.0-15.0); LYMPHOCYTES 28.9 % (24.0-44.0); MCH 28.1 pg (26.0-34.0); MCHC 33.2 g/dL (28.0-37.0); MCV 84.5 fL (80.0-100.0); MONOCYTES 7.6 % (1.0-8.0); PLATELET COUNT 298 thou/uL (150-400); POLYS 56.7 % (36.0-66.0); RBC 4.55 mil/uL (4.20-5.00); RDW 15.5 % (10.5-14.5); WBC 5.8 thou/uL (4.0-11.0)
[2018-07-24 17:41] LABS: ANION GAP 6 mmol/L (7-16); BUN 7 mg/dL (7-18); CALCIUM 8.9 mg/dL (8.5-10.1); CHLORIDE 104 mmol/L (98-107); CO2 31 mmol/L (21-32); CREATININE 0.8 mg/dL (0.6-1.0); GLUCOSE 84 mg/dL (74-106); POTASSIUM 3.8 mmol/L (3.5-5.1); SODIUM 141 mmol/L (136-145)
[2018-07-24 17:47] LABS: SGOT 16 U/L (15-37); SGPT 17 U/L (30-65); TOTAL BILIRUBIN 0.3 mg/dL (<0.1-1.0); TOTAL PROTEIN 6.6 g/dL (6.4-8.2); TROPONIN-I <0.06 ng/mL (<0.06)
[2018-07-24 18:18] LABS: URINE BILIRUBIN NEGATIVE (Negative); URINE BLOOD NEGATIVE (Negative); URINE CLARITY CLEAR; URINE COLOR YELLOW; URINE GLUCOSE-RANDOM* NEGATIVE (Negative); URINE KETONES NEGATIVE (Negative); URINE LEUKOCYTES NEGATIVE (Negative); URINE NITRITE NEGATIVE (Negative); URINE PROTEIN (DIPSTICK) NEGATIVE (Negative); URINE UROBILINOGEN 0.2 E.U./dl (0.2-1.0)
[2018-07-24 19:27] VITALS: BP 146/84
[2018-07-24 21:22] VITALS: BP 143/68
[2018-07-24 22:51] VITALS: BP 127/86
--- NOTE | 2018-07-24 23:37 | NUR ---
ASSESSMENT COMPLETED. PT IS ALERT AND ORIENTED. ON 06/11L/NC AND MANTAINING SATS AT >93%. PT IS AFEBILE. ATE A SANDWICH. REPORTS CHRONIC PAIN TO SHOULDERS AND CHENG KNEES.CALL LIGHT WITHIN REACH.FALL PREC IN PLACE.
[2018-07-25 05:25] LABS: HEMATOCRIT 37.1 % (37.0-47.0); HEMOGLOBIN 12.4 gm/dL (12.0-15.0); MCH 28.1 pg (26.0-34.0); MCHC 33.5 g/dL (28.0-37.0); MCV 84.1 fL (80.0-100.0); RBC 4.41 mil/uL (4.20-5.00); RDW 15.3 % (10.5-14.5); WBC 5.7 thou/uL (4.0-11.0)
[2018-07-25 05:35] VITALS: BP 132/77
[2018-07-25 05:37] LABS: CALCIUM 8.5 mg/dL (8.5-10.1); CREATININE 0.9 mg/dL (0.6-1.0); POTASSIUM 4.5 mmol/L (3.5-5.1)
[2018-07-25 08:38] VITALS: BP 129/68
--- NOTE | 2018-07-25 09:03 | EKG ---
[address] [address] ELECTROCARDIOGRAM REPORT Name: KHUSHI RAMOSJORIDara Regalado Room #: 427-P ADM IN .R.#: [id number] ������������������ Admission: 07/24/18 ������������������ Attend Phys: Earnestine Cardoso MD Discharge: ������������������ Date of : 34 Report #: [id number] ����������������������������������������������������������������� [id number] THIS REPORT FOR: //name// [facility] ED Test Date: 2018-07-24 Test Time: 16:57:15 Pat Name: ALEXIS RAMOS Department: Room: [facility] Gender: F Soda Tester: ARTURO : 1930 Requested By: Sumanth Fong Order Number: [id number] MD: Joe Arthur Measurements Intervals [place] Rate: 68 P: 51 SD: 184 QRS: -1 QRSD: 78 T: 27 QT: 411 QTc: 438 Interpretive Statements Sinus rhythm Normal tracing Compared to ECG 09/28/2017 10:41:50 No significant changes Electronically Signed On 07-25-2018 9:02:57 CDT by Joe Arthur [email or web address] ��������������������������������������������� <ELECTRONICALLY SIGNED> ���������������������������������������� By: Joe Arthur MD, [facility] ��������������������������������������������� 07/25/18901 56 56 Joe Arthur MD, FAC /EPI
--- NOTE | 2018-07-25 14:22 | NUR ---
PT ADMITTED RELATED TO COPD EXACERBATION. CM REVIEWED CHART AND SPOKE WITH CARE TEAM. CM MET WITH PT AT BEDSIDE. PT IS A&O X4. CM ROLE INTRODUCED. PT INDICATED THAT SHE RESIDES IN A HOUSE WITH 7 STEP TO ENTER. PT INDICATED HE GRANDDAUGHTER SLEEPS AT HER HOUSE BUT WORKS OUTSIDE THE HOUSE AND IS OFTEN OUT IN THE EVENINGS. PT IDNICATED THERE ARE 3-4 SETS OF 7 STEPS. 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 PT INDICATED THAT SHE HAS HOME O2 @ 3-4L AND A NEBULIZER FOR HOME USE THROUGH [employer]. PT INDICATED SHE HAD BEEN ON SERVICE WITH [facility] IN THE PAST AND THAT SHE WOULD USE THEM AGAIN UPON DC IS RECOMMENDED. CM TO FOLLOW INDICATED WITH DC PLANNING.
[2018-07-25 16:56] VITALS: BP 130/73
--- NOTE | 2018-07-25 16:58 | NUR ---
PT ARRIVED AT UNIT ACCOMPANIED BY VOLUNTEER VIA W/C. USES CAN, SOMEWHAT STEADY, A&0X4, REPORT OF 02 AT 1L, ON 3L PRESENTLY D/T TRAVEL, SATS OF 98%, WILL REDUCE TO 2L, AND CONTINUE TO MONITOR. GAVE DEMO OF CALL LIGHT, CHENG LE EDEMA, REMOVED SOCKS PER PT'S REPORT AND GAVE HER A WARM BLANKET.ENCOURAGED HER TO USE THE CALL LIGHT FOR ANY NEEDS
[2018-07-25 17:00] VITALS: BP 131/73
[2018-07-25 18:58] VITALS: BP 123/63
--- NOTE | 2018-07-26 05:36 | NUR ---
PATIENT ALERT AND ORIENTED X4. C/O PAIN, MED GIVEN WITH COMPLETE RELIEF. C/O DIZZINESS AND NAUSEA THIS AM AROUND 0430. VS TAKEN AND WERE WNL. IV CAME OUT LAST NIGHT, METHYLPREDNISOLONE AND ZOFRAN WAS CHANGED TO PO. PATIENT SLEEPS IN CHAIR. SLEPT LITTLE THIS SHIFT.
[2018-07-26 08:31] VITALS: BP 137/66
--- NOTE | 2018-07-26 08:38 | NUR ---
ASSUMED PT CARE AT 0700. ASSESSMENT COMPLETED AND IS CHARTED. VSS. PT IS AWAKE, ALERT/ORIENTED X4. DENIES PAIN AT THIS TIME. REPORTS SOME SHORTNESS OF BREATH WITH ACTIVITY AND A PRODUCTIVE COUGH. 2+ EDEMA NOTED TO LOWER LEGS AND FEET. PT CONCERNED SHE HAS NOT HAD A BOWEL MOVEMENT RECENTLY. STATES SHE TAKES SENNOKOT AT HOME. WILL REQUEST ORDER FROM PHYSICIAN. OTHERWISE NO NEW CONCERNS OR COMPLAINTS. WILL CONTINUE WITH CURRENT CARE.
--- NOTE | 2018-07-26 14:07 | NUR ---
PT DOING WELL THIS SHIFT. STOOL SOFTENER GIVEN PER HER REQUEST. UP IN CHAIR AND HAS BEEN WALKING AROUND IN ROOM. NO RESPIRATORY DISTRESS NOTED. WILL CONTINUE CURRENT CARE.
--- NOTE | 2018-07-26 15:05 | NUR ---
STAR reviewed chart and spoke with nursing and attending physician. Pt was transferred to [facility] and is progressing towards goals for discharge. PT/OT ordered to evaluate pt for discharge needs. STAR met with pt at bedside to discuss discharge plan. Pt states she is hoping she will be able to go home with HH when discharged. Pt has used [facility] in the past, and would like to use them again. Pt has been to [facility] in the past, and would prefer to go to [facility] if needed. corporate event planner to fax referral to [facility] for review. STAR notified [facility] liaison and nursing program coordinator. Awaiting therapy evals at this time. STAR also discussed with pt's son. STAR is following to assist as needed with discharge planning.
--- NOTE | 2018-07-26 15:14 | NUR ---
DISCHARGE PLANNING. ANTICIPATED DISCHARGE TOMORROW. POST ACUTE CARE RECOMMENDED AT DISCHARGE. REFERRAL FAXED TO [facility], VERIFIED RECEIVED. CALL PLACED TO [facility] TO NOTIFY OF REFERRAL AND ANTICIPATED DISCHARGE PLAN FOR TOMORROW, WILL REVIEW REFERRAL AND CONTACT CM ONCE REVIEW COMPLETE. UNIT CM/SW AWARE. FOLLOWING TO ASSIST WITH DISCHARGE.
--- NOTE | 2018-07-27 05:43 | NUR ---
PATIENT ALERT AND ORIENTED X4. UP IN CHAIR ALL NIGHT WHERE SHE SLEEPS. NO IV ACCESS. DENIES PAIN BUT DOES C/O SORENESS IN SHOULDERS. REFUSED PAIN MED. SLEPT MOST OF NIGHT.
[2018-07-27 06:20] LABS: HEMATOCRIT 36.8 % (37.0-47.0); MCH 27.7 pg (26.0-34.0); MCHC 32.7 g/dL (28.0-37.0); MCV 84.9 fL (80.0-100.0); RBC 4.34 mil/uL (4.20-5.00); RDW 15.5 % (10.5-14.5); WBC 8.1 thou/uL (4.0-11.0)
[2018-07-27 06:33] LABS: CALCIUM 8.5 mg/dL (8.5-10.1); CREATININE 1.1 mg/dL (0.6-1.0); POTASSIUM 4.1 mmol/L (3.5-5.1)
[2018-07-27 07:27] LABS: FOLIC ACID 3.7 ng/mL (8.6-58.9)
--- NOTE | 2018-07-27 10:19 | NUR ---
SW reviewed chart and spoke with nursing. [facility] SW met with pt at bedside to provide update. Pt states she would want to discharge home with HH, but knows she needs some rehab first. Pt is agreeable with going to [facility] SNF when medically stable. SW updated attending physician. Chart copy requested. SW is following to assist as needed with discharge planning.
[2018-07-27 10:30] VITALS: BP 112/60
--- NOTE | 2018-07-27 10:33 | NUR ---
dp sent OT therapy notes to Missy Umana, (will send other therapy notes, when in). Dp contacted admissions at [facility] to let them know. Patient should discharge today or tomorrow.
--- NOTE | 2018-07-27 11:30 | NUR ---
ASSUMED PT CARE AT 0700. ASSESSMENT COMPLETED AND IS CHARTED. VSS. PT AWAKE, ALERT/ORIENTED X4. UP IN CHAIR. REPORTS GENERALIZED PAIN RATED 8/10. TRAMADOL AND VOLTAREN GIVEN ORDERED. LUNGS ARE DIMINISHED. O2 REMAINS AT BASELINE 3L PER NC. 2+ EDEMA TO LOWER LEGS/FEET. PT CONCERNED SHE HAS NOT HAD A BOWEL MOVEMENT. SENNOKOT ORDERED. WILL CONTINUE WITH CURRENT CARE.
[2018-07-27] MEDS ORDERED: BACTRIM DS TAB1 EACH PO (13:02)
[2018-07-27] MEDS ORDERED: REMERON15 MG PO (13:03)
[2018-07-27] MEDS ORDERED: FOLIC ACID0.4 MG PO (13:04)
[2018-07-27] MEDS ORDERED: PREDNISONE 10 M10 MG PO (13:04)
--- NOTE | 2018-07-27 14:00 | NUR ---
REPORT CALLED TO BRANDY BLACK KEVIL.
--- NOTE | 2018-07-27 15:25 | NUR ---
DISMISSED PT TO [facility] VIA TRANSPORT SERVICES IN WHEELCHAIR.
== END 2018-07-27 15:25 | DRG 189 ==
LOC: ER 16:23 → 4E 18:20 → EROBS 18:20 → 4E 21:24 → SICU 07-25 17:03
PROVIDERS: Emergency Medicine; Hospitalist; Nurse Practitioner Family; ADMIT Internal Medicine
DX: J96.21 Acute and chronic respiratory failure with hypoxia (principal); J44.1 Chronic obstructive pulmonary disease with (acute) exacerbation; I50.32 Chronic diastolic (congestive) heart failure; J96.22 Acute and chronic respiratory failure with hypercapnia; E03.9 Hypothyroidism, unspecified; J45.909 Unspecified asthma, uncomplicated; Z96.659 Presence of unspecified artificial knee joint; M62.84 Sarcopenia; K59.00 Constipation, unspecified; M19.012 Primary osteoarthritis, left shoulder; M19.011 Primary osteoarthritis, right shoulder; E53.8 Deficiency of other specified B group vitamins; Z90.710 Acquired absence of both cervix and uterus; Z88.6 Allergy status to analgesic agent; Z88.0 Allergy status to penicillin; Z87.891 Personal history of nicotine dependence
CPT/HCPCS: 10084; 10183; 15002

== ENCOUNTER 2018-08-29 11:25 | Inpatient (IN) | payer OTHER, MEDICARE ==
[~2018-08-29] VITALS: Ht 149.9 cm; Wt 78.7 kg
[~2018-08-29 11:25] MED LIST changes: +BACTRIM DS TAB1 EACH PO; +FOLIC ACID0.4 MG PO; +REMERON15 MG PO
[2018-08-29 11:26] VITALS: BP 120/63
[2018-08-29 12:11] LABS: ABSOLUTE NEUTROPHILS 4.8 thou/uL (1.4-8.2); EOSINOPHILS 4.4 % (0.0-3.0); HEMATOCRIT 39.4 % (37.0-47.0); LYMPHOCYTES 20.7 % (24.0-44.0); MCH 28.1 pg (26.0-34.0); MCV 85.1 fL (80.0-100.0); MONOCYTES 4.9 % (1.0-8.0); PLATELET COUNT 324 thou/uL (150-400); RBC 4.63 mil/uL (4.20-5.00); RDW 15.4 % (10.5-14.5)
[2018-08-29 12:15] LABS: BE(vivo) 0.7 mmol/L (-2 to +3); HCO3 25.7 mmol/L (22.0-26.0); PCO2 42.8 mmHg (35.0-45.0); PO2 63.5 mmHg (80.0-100.0); pH 7.397 (7.360-7.450); sO2 92.2 % (92.0-98.0)
[2018-08-29 12:18] LABS: ANION GAP 8 mmol/L (7-16); BUN 8 mg/dL (7-18); CALCIUM 9.5 mg/dL (8.5-10.1); CHLORIDE 104 mmol/L (98-107); CO2 31 mmol/L (21-32); CREATININE 0.9 mg/dL (0.6-1.0); GLUCOSE 97 mg/dL (74-106); POTASSIUM 3.8 mmol/L (3.5-5.1); SODIUM 143 mmol/L (136-145)
[2018-08-29 12:28] LABS: ALBUMIN 3.4 g/dL (3.4-5.0); SGOT 15 U/L (15-37); SGPT 17 U/L (30-65); TOTAL BILIRUBIN 0.4 mg/dL (<0.1-1.0); TOTAL PROTEIN 7.5 g/dL (6.4-8.2); TROPONIN-I <0.06 ng/mL (<0.06)
[2018-08-29 15:40] VITALS: BP 143/56
[2018-08-29 16:26] VITALS: BP 133/65
[2018-08-29 16:40] VITALS: BP 136/72
--- NOTE | 2018-08-29 17:14 | EKG ---
[address] [place] [address] ELECTROCARDIOGRAM REPORT Name: KHUSHI RAMOSNORA Regalado Room #: 450- ADM IN M.R.#: [id number] ������������������ Admission: 08/29/18 ������������������ Attend Phys: López Young Discharge: ������������������ Date of : 34 Report #: [id number] ����������������������������������������������������������������� [id number] THIS REPORT FOR: //name// [facility] ED Test Date: 2018-08-29 Test Time: 11:35:47 Pat Name: ALEXIS RAMOS Department: Room: [facility] Gender: F Training Intern: ERNESTINA : 1930 Requested By: Dhruv Najera Order Number: [id number] MD: Joe Arthur Measurements Intervals [place] Rate: 68 P: 56 PA: 179 QRS: 5 QRSD: 86 T: 30 QT: 392 QTc: 417 Interpretive Statements Sinus rhythm Normal tracing Compared to ECG 07/24/2018 16:57:15 No significant changes Electronically Signed On 08-29-2018 17:14:36 CDT by Joe Arthur [email or web address] ��������������������������������������������� <ELECTRONICALLY SIGNED> ���������������������������������������� By: Joe Arthur MD, [facility] ��������������������������������������������� 08/29/18 1714 D: 045 113 Joe Arthur MD, FACC /EPI
--- NOTE | 2018-08-29 17:36 | NUR ---
PT ARRIVED TO ROOM FROM ED AT 16:45. ADMISSION ASSESSMENT COMPLETED. A&O,X4. PT STATES SOMETIMES SHE IS FORGETFUL, BUT LIVES INDEPENDENTLY AT HOME AND TAKES CARE OF HERSELF. WALKS WITH CANE, WEAKNESS NOTED. C/O SOA AND COPD EXACERBATION. [address], HOME OXYGEN BASELINE. LUNG SOUNDS WHEEZES/COARSE AND RHONCHI. SR 60-70'S. COMPLAINS OF SOA WITH EXERTION, DENIES CHEST PAIN. +2 PITTING BILATERAL ANKLE EDEMA. ACTIVE BOWEL SOUNDS. SKIN INTACT. HIGH FALL RISK NOTED, PRECAUTIONS IN PLACE. WILL CONTINUE TO MONITOR UNTIL EOS.
[2018-08-29 19:15] VITALS: BP 129/64
[2018-08-30] VITALS (7 sets, daily range): BP systolic 119–155; BP diastolic 63–86
--- NOTE | 2018-08-30 06:00 | NUR ---
Pt. rested quietly at intervals during the night when checked on during frequent rounds. She did c/o having some restless leg syndrome and was inquiring about meds for this. Spoke to Magaly LAO with new orders (see cpoe and emar). She ambulates to the bathroom with one assist and her walker. Bed alarm is on.
--- NOTE | 2018-08-30 15:24 | NUR ---
PT ADMITTED RELATED TO CPOD EXACERBATION, SOA. CM REVIEWED CHART AND SPOKE WITH CARE TEAM. CM MET WITH PT AT BEDSIDE THIS DAY. PT IS A&O X4. CM ROLE INTRODUCED. PT INDICATED SHE LIVES IN A HOUSE WITH 7 STEPS TO ENTER AND 3-4 SETS OF 7 SETS INSIDE. PT INDICATED HER GDTR LIVES WITH HER BUT THAT SHE WORKS OUTSIDE THE HOME AND JUST SLEEPS AND EATS THERE. PT INDICATED SHE HAS A CANE AND A FWW FOR HOME USE. 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 PT IS ON SERVICE WITH [employer] IN [place] . PT EXPRESSED INTEREST IN GETTING A PORTABLE CONCENTRATOR FOR HOME USE. CM CALLED [facility] AND INDICATED THAT PT HAD A PORTABLE CONCENTRATOR IN SEPTEMBER OF LAST YEAR BUT THAT THEIR DOCUMENTATION STATES THAT PT LOST IT AT [facility] AND PT WOULD NEED TO PURCHASE ONE OP FOR 2,500-4,500 AND WOULDN'T BE ELLIGIABLE FOR ONE UNTIL NEXT YEAR. CM TO FOLLOW INDICATED WITH DC PLANNING.
--- NOTE | 2018-08-30 16:34 | NUR ---
PT A&OX4, VSS AND NO SIGNS OF DISTRESS, PT DENIES PAIN. PT UP IN RECLINER THROUGH OUT DAY, HAS BEEN ASSISTED TO BATHROOM. PLAN IS TO ENCOURAGE PT TO PLACE AT NURSING FACILITY. AT THIS TIME PATIENT STATES SHE WOULD LIKE TO GO HOME WITH THERAPY. FALL PRECAUTIONS IN PLACE, WILL CONTINUE TO MONITOR.
[2018-08-31 03:00] VITALS: BP 137/74
--- NOTE | 2018-08-31 04:45 | NUR ---
Pt. rested quietly during the night when checked on during frequent rounds. She offers no c/o increased shortness of air. Refused SSI. Pt. rested in recliner chair all night per her request. Chair alarm is on.
[2018-08-31 08:03] VITALS: BP 129/67
[2018-08-31 15:03] VITALS: BP 126/70
--- NOTE | 2018-08-31 15:34 | NUR ---
ACUTE HYDRO STATION OPERATOR REVIEWED PATIENT'S THERAPY NOTES AND DISCUSSED WITH FELIPE FERRELL NP WITH DR. GARCIA. PATIENT IS AT TOO HIGH OF A FUNCTIONAL LEVEL TO QUALIFY FOR ACUTE REHAB SERVICES. PHYSICAL THERAPY RECOMMENDING HOME. STEM MAKER INFORMED.
--- NOTE | 2018-08-31 15:37 | NUR ---
CM NOTIFIED THAT PT IS TOO HIGH LEVEL FOR 5N ACUTE INPATIENT REHAB. THEY INDICATED THAT PT MAY BE APPROPRIATE FOR SNF OR HOME WITH HOME HEALTH. CM TO FOLLOW INDICATED WITH DC PLANNING.
--- NOTE | 2018-08-31 17:31 | NUR ---
ASSUMED PT CARE REPORT RECEIVED FROM NURSE PT IS AOX4 SR ON APPLIED EXERCISE PHYSIOLOGIST. ON 3 LNC. NO SOB. PT SATURATION IS ABOVE 95%. PT OUT OF BED TO CHAIR , BED ALARM ON. IV LINE PATENT. MORNING MEDICATIONS ADMINISTERED BY NURSING STUDENTS ALONG WITH INSTRUCTOR. WILL CONTINUE TO MONITOR PT
--- NOTE | 2018-08-31 17:33 | NUR ---
MONITORING ACCUCHECK. GIVEN STEROIDS. INSULIN GIVEN NEEDED
--- NOTE | 2018-08-31 18:43 | HC ---
[facility] [place] [address] CONSULTATION Name: ALEXIS RAMOS Room #: 450-P ADM IN ..#: [id number] Admission: 08/29/18 ������������������ Attend Phys: López Young Discharge: ������������������ Date of : 32 Report #: [id number] THIS REPORT FOR: //name// CC: López Young Claudioxavier Espinoza DATE OF SERVICE: 08/29/2018 REFERRAL PHYSICIAN: Dr. Young. REASON FOR REFERRAL: Hypoxia. HISTORY OF PRESENT ILLNESS: The patient is a pleasant 88-year-old female who was brought to the Emergency Room Department with progressive dyspnea. A pulmonary consultation was requested. The patient has known COPD. She was just admitted in 07/2018 for similar problems with exacerbation of COPD. She was doing fairly well until yesterday. The patient admits that she did more than she should at home. She lives at home with family. However, she is by herself in the daytime for many hours. Her son stays with her on the weekends. She has other family members who visit her in the evenings. Aside from dyspnea, she denies any fever, night sweats or chills, sore throat, productive cough, hemoptysis. Prior PFT showed baseline FEV1 of 0.69 liter or 57% predicted. PAST MEDICAL HISTORY: Notable for COPD, asthma, probable asthma overlap, partial thyroidectomy, knee surgery, bilateral breast reduction in 1997, hysterectomy in 1969. ALLERGIES: ASPIRIN, WHICH CAUSES GI UPSET, PENICILLIN CAUSES HIVES. MEDICATIONS: Reviewed in the MAR. These include Motrin, nebulized DuoNeb, vitamin supplements, and folic acid. FAMILY HISTORY: Noncontributory. SOCIAL HISTORY: The patient has smoked, but quit many years ago. She denies any alcohol use. She is , lives at her own house; however, son stays with her on the weekends. She has family members who assist her in the evenings. She is alone by herself in the daytime. REVIEW OF SYSTEMS: As mentioned above, otherwise 10-point system review [facility] [address] [place] [address] CONSULTATION Name: KIRA RAMOSNORA Regalado Room #: 450-P [facility] IN M.R.#: [id number] Admission: 08/29/18 ������������������ Attend Phys: López Zuleta Kiratay Discharge: ������������������ Date of : 32 Report #: [id number]. PHYSICAL EXAMINATION: GENERAL: She is awake, alert, in mild distress. She appears mildly dyspneic. VITAL SIGNS: Temperature is 99.0 degrees Fahrenheit, pulse is 68, respiratory rate is 20, blood pressure 143/56 mmHg, saturation 99%. HEENT: Normocephalic, atraumatic. NECK: Supple, without lymphadenopathy or thyromegaly. CHEST: Breath sounds are fair with mild expiratory wheezes. CARDIOVASCULAR: Normal S1, S2. No murmurs or gallop. There is no JVD. There is no carotid bruit. Pulses are 2+/4+ bilaterally. ABDOMEN: Soft, nontender, moderately obese. No organomegaly or masses felt. GENITOURINARY: Deferred. RECTAL: Deferred. EXTREMITIES: There is no edema, cyanosis or clubbing. LABORATORY DATA: Chest x-ray is relatively clear. Influenza A and B swab is negative. Electrolytes are normal. Liver enzymes normal. WBC 7000, hemoglobin 13.0. Arterial blood gas revealed pH 7.39, pCO2 of 42, pO2 of 63 on room air. IMPRESSION: 1. Exacerbation of chronic obstructive pulmonary disease/asthma. Etiology may be related to lower respiratory tract infection. 2. Chronic diastolic dysfunction. 3. Deconditioning, weakness. 4. Disposition. The patient at this stage may benefit from either a mcfp facility or living with family where there are some family members available on a regular basis. RECOMMENDATION: Agree with current care, corticosteroids, bronchodilators, broad-spectrum antibiotics. DVT and GI prophylaxis recommended. Thank you for this consultation. ��������������������������������������������� <ELECTRONICALLY SIGNED> ���������������������������������������� By: Kaveh Metz MD ��������������������������������������������� 08/31/18 1843 1652 0428 Kaveh Metz MD /nt
[2018-08-31 19:42] VITALS: BP 131/72
--- NOTE | 2018-09-01 03:59 | NUR ---
PATIENT IS ALERT AND ORIENTED X 4. PT WAS ABLE TO GET COMFORTABLE AND SLEEP PART OF THE SHIFT ON A RECLINER. O2 VIA NC AT 3L CONTINUED. PT WALKED TO THE BATHROOM WITH A WALKER AND SB ASSIST. ABX TREATMENT CONTINUED. PULMONOLOGY OK DC. PATIENT IS PROGRESSING TOWARDS DC GOALS.
[2018-09-01 06:05] VITALS: BP 132/68
[2018-09-01 08:00] VITALS: BP 129/71
[2018-09-01 10:08] VITALS: BP 132/68
--- NOTE | 2018-09-01 10:12 | NUR ---
DISCHARGE PLANNING. ANTICIPATED DISCHARGE TODAY OR TOMORROW. PATIENT DISCHARGING TO HOME WITH [facility]. PER DALIA, [facility] INTAKE, PATIENT IS CURRENT WITH THEIR SERVICES. DALIA TO FACILITATE PATIENTS HOME HEALTH NEEDS ONCE ORDERS RECEIVED. UNIT CM/SW AWARE. FOLLOWING TO ASSIST WITH DISCHARGE NEEDS. SHOULD PATIENT DISCHARGE OVER THE WEEKEND, PLEASE FAX DISCHARGE ORDERS AND DISCHARGE SUMMARY TO [facility]. ATTN: DALIA CONTACT NUMBER FOR [facility] [phone] FAX NUMBER [phone]. THANK YOU
[2018-09-01] MEDS ORDERED: PREDNISONE 10 M10 MG PO (11:27)
[2018-09-01] MEDS ORDERED: DOXYCYCLINE 10100 MG PO (11:28)
[2018-09-01] MEDS ORDERED: REMERON15 MG PO (11:37)
--- NOTE | 2018-09-01 13:51 | NUR ---
CARE TEAM INDICATED PT IS MEDICALLY STABLE TO DISCHARGE HOME THIS DAY. [facility] HAD BEEN [facility] WITH THEM IN THE PAST. CM NOTIFIED PT THAT [facility] INDICATED SHE WOULDN'T BE ELLIGIABE FOR A PORTABLE CONCENTRATOR UNTIL NEXT YEAR. PT'S FAMILY TO TRANSPORT HER HOME. PT HAS ALL OTHER RECOMMENDED DME. NO OTHER CM INTERVENTION INDICATED AT THIS TIME. CASE CLOSED.
--- NOTE | 2018-09-01 14:14 | NUR ---
ASSUMED CARE 0700. A/OX4, DENIES PAIN, VSS, NSR ON TELE. PT VOICED SHE DOES NOT WANT TO BE ON FALL ALARM. EDUCATED PT THE NEED FOR OVERSIGHT WHEN AMBULATING FOR SAFETLY PURPOS. PT COMPLIANT WITH FALL PRECAUTIONS. DC'S HOME WITH HOME HEALTH. LEFT WITH FAMILY AND DISCHARGE PAPERWORK AND SCRIPTS.
== END 2018-09-01 13:30 | disposition home health service (06) | DRG 189 ==
LOC: ER 11:25 → 4W 14:01 → EROBS 14:01 → 4W 16:27 → ENTRNSPT 09-01 13:41 → EDTRNSPTSTS 09-01 13:42
PROVIDERS: Physician Assistant; ADMIT Hospitalist
DX: J96.21 Acute and chronic respiratory failure with hypoxia (principal); J44.1 Chronic obstructive pulmonary disease with (acute) exacerbation; E44.0 Moderate protein-calorie malnutrition; I50.32 Chronic diastolic (congestive) heart failure; J45.909 Unspecified asthma, uncomplicated; E03.9 Hypothyroidism, unspecified; Z96.659 Presence of unspecified artificial knee joint; M19.90 Unspecified osteoarthritis, unspecified site; G89.29 Other chronic pain; M54.30 Sciatica, unspecified side; M62.84 Sarcopenia; G62.9 Polyneuropathy, unspecified; Z90.710 Acquired absence of both cervix and uterus; Z88.6 Allergy status to analgesic agent; Z88.0 Allergy status to penicillin; Z87.891 Personal history of nicotine dependence; Z68.35 Body mass index [BMI] 35.0-35.9, adult; Z79.52 Long term (current) use of systemic steroids
CPT/HCPCS: 10045

== ENCOUNTER 2019-02-22 11:35 | Inpatient (IN) | payer OTHER, MEDICARE ==
[~2019-02-22] VITALS: Ht 162.6 cm; Wt 71.2 kg
[2019-02-22 11:36] VITALS: BP 136/77
[2019-02-22 12:24] LABS: BE(vivo) 2.6 mmol/L (-2 to +3); HCO3 27.4 mmol/L (22.0-26.0); PCO2 43.2 mmHg (35.0-45.0); PO2 83.5 mmHg (80.0-100.0); sO2 96.4 % (92.0-98.0)
[2019-02-22 12:49] LABS: ABSOLUTE NEUTROPHILS 9.5 thou/uL (1.4-8.2); BASOPHILS 0.3 % (0.0-2.0); EOSINOPHILS 0.3 % (0.0-3.0); HEMATOCRIT 36.4 % (37.0-47.0); HEMOGLOBIN 11.8 gm/dL (12.0-15.0); LYMPHOCYTES 6.2 % (24.0-44.0); MCH 27.8 pg (26.0-34.0); MCHC 32.4 g/dL (28.0-37.0); MCV 85.7 fL (80.0-100.0); MONOCYTES 7.9 % (1.0-8.0); PLATELET COUNT 304 thou/uL (150-400); POLYS 85.3 % (36.0-66.0); RBC 4.25 mil/uL (4.20-5.00); RDW 14.9 % (10.5-14.5); WBC 11.2 thou/uL (4.0-11.0)
[2019-02-22 12:55] LABS: ANION GAP 6 mmol/L (7-16); BUN 9 mg/dL (7-18); CALCIUM 9.1 mg/dL (8.5-10.1); CHLORIDE 101 mmol/L (98-107); CO2 31 mmol/L (21-32); CREATININE 0.9 mg/dL (0.6-1.0); GLUCOSE 122 mg/dL (74-106); POTASSIUM 3.8 mmol/L (3.5-5.1); SODIUM 138 mmol/L (136-145)
[2019-02-22 13:03] LABS: TROPONIN-I <0.06 ng/mL (<0.06)
[2019-02-22 15:34] VITALS: BP 121/52
--- NOTE | 2019-02-22 16:29 | EKG ---
[address] [address] ELECTROCARDIOGRAM REPORT Name: ALEXIS RAMOS Room #: 355-P ADM IN M.R.#: [id number] Admission: 02/22/19 Attend Phys: Willis Chávez MD Discharge: Date of : 32 Report #: [id number] THIS REPORT FOR: //name// [facility] ED Test Date: 2019-02-22 Test Time: 11:53:41 Pat Name: ALEXIS RAMOS Department: Room: 355 Gender: F Director Of Corporate Sponsorships: WG : 1930 Requested By: Sumanth Fong Order Number: [id number] MD: Deangelo Perez Measurements Intervals [place] Rate: 109 P: 60 [place]: 182 QRS: 15 QRSD: 81 T: 27 QT: 321 QTc: 433 Interpretive Statements Sinus tachycardia Compared to ECG 08/29/2018 11:35:47 Sinus rhythm no longer present Electronically Signed On 02-22-2019 16:29:21 CDT by Deangelo Perez [email or web address] <ELECTRONICALLY SIGNED> By: Deangelo Perez MD 02/22/19 1629 1153 1153 Deangelo Perez MD /NASIMA
[2019-02-22 16:45] VITALS: BP 121/52
[2019-02-22 16:46] LABS: TSH 1.453 uIU/mL (0.358-3.740)
[2019-02-22 17:20] VITALS: BP 116/50
--- NOTE | 2019-02-22 18:42 | NUR ---
pt received to room 344 from er per stretcher. pt has cane with her which she states she uses at home. pt aox4. maex4. pt co soa, on o2 @ 4lt nc (baseline). pt states she has a poor appetite. pt states she just doesn't feel good. pt receiving ivf's and antibx to lt ac. pt able to walk slowly w/ a steady, balanced and coordinated gait w/ cane to bthrm, but needs to wear her oxygen as she becomes soa w/ activity. pt request to be a dnr, wrist band applied.
[2019-02-22 19:57] VITALS: BP 103/52
[2019-02-23] VITALS (7 sets, daily range): BP systolic 98–152; BP diastolic 52–89
--- NOTE | 2019-02-23 04:58 | NUR ---
SLEPT MOST OF SHIFT. STATES BEST SLEEP IN A LONG TIME. WORKING ON GOALS AND PLAN OF CARE FOR NOC. ASSIST UP TO BATHROOM NEEDED. MAINTAIN SAFE ENVIRONMENT. PROGRESSING SLOWLY TOWARDS DISCARGE GOALS. CONTINUE TO ASSES CLOSELY.
[2019-02-23 05:55] LABS: CALCIUM 9.5 mg/dL (8.5-10.1); CREATININE 0.8 mg/dL (0.6-1.0); MAGNESIUM 2.4 mg/dL (1.8-2.4); POTASSIUM 4.4 mmol/L (3.5-5.1)
[2019-02-23 06:25] LABS: BASOPHILS 0.2 % (0.0-2.0); HEMATOCRIT 39.1 % (37.0-47.0); HEMOGLOBIN 12.7 gm/dL (12.0-15.0); LYMPHOCYTES 4.4 % (24.0-44.0); MCHC 32.3 g/dL (28.0-37.0); MCV 86.5 fL (80.0-100.0); MONOCYTES 1.9 % (1.0-8.0); PLATELET COUNT 304 thou/uL (150-400); POLYS 93.5 % (36.0-66.0); RBC 4.52 mil/uL (4.20-5.00); RDW 14.9 % (10.5-14.5)
--- NOTE | 2019-02-23 14:18 | NUR ---
PT ADMITTED RELATED TO COPD EXACERBATION; CAP. CM REVIEWED CHART AND SPOKE WITH CARE TEAM. CM MET WITH PT AT BEDSIDE THIS DAY. PT IS A&O X4. CM ROLE INTRODUCED. PT INDICATED SHE LIVES IN A HOUSE WITH HER TWO GREAT GRANDDAUGHTERS. PT INDICATED THAT THERE ARE 5 STEPS TO ENTER AND 24 STEPS INSIDE. 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 PT HAS HOME O2 THROUGH [facility] AND HAD BEEN ON 4L OIL PLANT OPERATOR. PT INDICATED SHE HAD BEEN ON SERVICE WITH [facility] . PT INDICATED SHE PLANS TO DC HOME ONCE MEDICALLY STABLE BUT FAMILY ARE INTERESTED IN PT GOING FOR A POST ACUTE CARE STAY UPON DC. CARE TEAM INDICATED THAT PT WILL BE HERE OVER THE WEEKEND. CM TO FOLLOW INDICATED WITH DC PLANNING.
[2019-02-23] MEDS ORDERED: LEXAPRO 10 MG T10 M2 PO (15:51)
[2019-02-23] MEDS ORDERED: POTASSIUM99 M1 PO (15:56)
--- NOTE | 2019-02-23 16:45 | NUR ---
Assumed care approx. 0700 this AM. No acute changes this shift. Patient originally on 4LNC this AM and titrated down per RT, pt tolerating well but gets quite short of breath with activity; pt also becomes tachycardic. Patient refused heart healthy diet-changed to regular diet by Dr. Chávez. Speech therapy saw patient and stated she needs to be on mechanical chopped diet with no mixed consistencies. Pt wanted a beer runner salad for dinner and ONLY that meal. Speech therapy notified and said patient needs to be monitored while eating if other than mechanical chopped diet--Dr. Bartlett on the unit and said patient could be changed to a regular diet. Dr. Bartlett notified over Dr. Chávez as the patient only had a few more minutes to call dietary before 4:30; pt called at 1632 and dietary wouldn't allow the alternative option to be chosen. Pt very upset at this time and stated she will not be eating dinner tonight-- Will offer patient alternative options to see if she will eat anything else. Pt hoping to to go home with home health soon as she stated she doesn't want go anywhere else but home per SW. Pt slowly progressing toward goals, but has much more progress to make until medically stable to discharge due to respiratory status. Will continue to monitor.
[2019-02-24 00:05] LABS: GLYCOHEMOGLOBIN (HGB A1C) 5.9 % (4.8-5.6)
--- NOTE | 2019-02-24 02:50 | NUR ---
SLEPT MOST OF SHIFT. TOLERATING SLEEPING IN BED. ASSIST UP TO BATHROOM WITH STANDBY ASSIST AND CANE, MAINTAIN SAFE ENVIRONMENT. WORKING ON GOALS AND PLAN OF CARE FOR NOC. PROGRESSING SLOWLY TOWARDS DISCHARGE GOALS. DENIES COMPLAINTS OF PAIN BUT REMAINS WITH SHORTNESS OF AIR WITH ACTIVITY. PLANS TO RETURN HOME WITH HH NEEDED. STATES SHE CAN DO HER OWN HOUSE WORK. CONTINUE TO ASSES CLOSELY.
[2019-02-24 02:58] VITALS: BP 136/63
[2019-02-24 04:59] LABS: HEMATOCRIT 35.5 % (37.0-47.0); HEMOGLOBIN 11.4 gm/dL (12.0-15.0); MCH 27.7 pg (26.0-34.0); MCV 86.4 fL (80.0-100.0); RBC 4.1 mil/uL (4.20-5.00); RDW 14.8 % (10.5-14.5); WBC 14.6 thou/uL (4.0-11.0)
[2019-02-24 05:05] LABS: CALCIUM 9.3 mg/dL (8.5-10.1); CREATININE 0.9 mg/dL (0.6-1.0); POTASSIUM 4.2 mmol/L (3.5-5.1)
[2019-02-24 08:32] VITALS: BP 153/74
[2019-02-24 11:39] VITALS: BP 107/53
--- NOTE | 2019-02-24 12:00 | HC ---
[facility] [place] [address] CONSULTATION Name: ALEXIS RAMOS Room #: 355-[facility] IN .R.#: [id number] Admission: 02/22/19 Attend Phys: Willis Chávez MD Discharge: Date of : 32 Report #: [id number] THIS REPORT FOR: //name// CC: Willis Espinoza DATE OF SERVICE: 02/23/2019 CONSULTING PHYSICIAN: Dr. Chávez. REASON FOR CONSULTATION: Hyperglycemia. HISTORY OF PRESENT ILLNESS: This is an 88-year-old female patient whose medical background is primarily noted for asthma, COPD, requiring oxygen use and daily steroid use. The patient was admitted yesterday with complaints of worsening shortness of breath and generalized weakness and was felt to be in a COPD exacerbation and was subsequently admitted for further care and monitoring. After her admission, the patient was noted to have some hyperglycemic blood glucose values, but on further questioning, she indicated that she has never been diagnosed with diabetes in the past and has never been on active therapy for that issue that she recalls. She does have a family history of diabetes mellitus and notes that her daughter has diabetes. Also, the patient has hypothyroidism following a thyroidectomy procedure that she had in 1950 for a benign goiter. She is currently on a stable dose of levothyroxine 175 mcg daily that she notes had not needed to be changed for a long time. She has intermittent issues with fatigue and tiredness, but maintains a stable body weight for the most part. REVIEW OF SYSTEMS: CONSTITUTIONAL: Fatigue, tiredness, fever, chills. No major changes in body weight. HEENT: Noted for sore throat, sinus congestion, rhinorrhea. No ear drainage. PULMONARY: Shortness of breath with a baseline of COPD and asthma. She has cough, but not hemoptysis. CARDIAC: Intermittent issues with palpitations, lower extremity edema. No chest pain. GASTROINTESTINAL: Occasional abdominal discomfort and nausea, but not vomiting or major changes in bowel movement frequency. NEUROLOGY: Occasional lightheadedness, dizziness, but not seizure activity or loss of consciousness. MUSCULOSKELETAL: Intermittent sporadic joint and muscle aches and pains. SKIN: No major rash, ulceration or other abnormalities. Otherwise, review of systems noncontributory other than those mentioned in HPI. [address] [address] CONSULTATION Name: ALEXIS RAMOS Room #: 355-[facility] IN M.R.#: [id number] Admission: 02/22/19 Attend Phys: Willis Chávez MD Discharge: Date of : 32 Report #: [id number] PAST MEDICAL HISTORY: 1. COPD. 2. Hypothyroidism. 3. Sciatica. 4. Osteoarthritis. 5. Vitamin D deficiency. 6. Lower extremity edema. 7. Neuropathy. OUTPATIENT MEDICATIONS: Include albuterol p.r.n., levothyroxine 175 mcg daily, furosemide 20 mg daily, gabapentin 100 mg t.i.d., Spiriva daily, vitamin D 1000 units daily, prednisone 10 mg daily. ALLERGIES: Noted towards PENICILLIN AND ASPIRIN. PAST SURGICAL HISTORY: Total thyroidectomy in 1950, hysterectomy and breast reduction. FAMILY HISTORY: Noted for type 2 diabetes mellitus. SOCIAL HISTORY: The patient lives alone. She is a lifetime smoker and continues to smoke half a pack per day. PHYSICAL EXAMINATION: GENERAL: Pleasant elderly -Citizen Of [place] female patient who is not in apparent distress. VITAL SIGNS: Blood pressure is 127/69 mmHg, heart rate is 85 beats per minute, respirations 20 per minute, temperature 36.6 degrees. CONSTITUTIONAL: Appears comfortable, resting in bed, not in apparent distress. HEENT: Anicteric sclerae. Intact extraocular motions. NECK: Supple, without JVD, carotid bruits or lymphadenopathy. I do not appreciate thyromegaly or thyroid tissue altogether. CHEST: Noted for distant breath sounds. Limited air entry, wheezes, coarse rhonchi. No crackles. HEART: Regular rate and rhythm without murmurs or gallops. ABDOMEN: Soft and lax without tenderness or organomegaly. She has active bowel sounds. EXTREMITIES: Lower extremity exam is noted for +1 ankle edema bilaterally with stasis dermatitis. No skin breaks, ulcerations or other major deformities are noted. NEUROLOGIC: Awake, alert and oriented to time, place and person. The remainder of her examination is largely nonfocal. PSYCHIATRIC: She seems a bit down, but nonetheless pleasant, interactive, answers my questions appropriately. [address] [address] CONSULTATION Name: ALEXIS RAMOS Room #: 355-[facility] IN M.R.#: [id number] Admission: 02/22/19 Attend Phys: Willis Chávez MD Discharge: Date of : 32 Report #: [id number] LABORATORY DATA: Blood glucose values since arrival have ranged from 145-329 mg/dL. Actually, the one documented elevation was 329 mg/dL. Otherwise, sodium 140, potassium 4.4, chloride 105, CO2 of 25, anion gap 10, BUN 13, creatinine 0.8, glucose by blood draw was 128 and 145, AST 15, calcium 9.5, magnesium 2.4, alkaline phosphatase 83, total protein 7.5, GFR 82. Free T4 of 0.9. BNP 311. White blood count 16, hemoglobin 12.7, hematocrit 39.1, platelets 304. TSH 1.453. Hemoglobin A1c in June 2017 was 5.5. ASSESSMENT AND PLAN: 1. Hyperglycemia. The patient certainly has risk factors for type 2 diabetes mellitus; however, she has never been formally diagnosed to have that and she is not aware of a prior documentation of hyperglycemia either. As noted above, the patient was recorded as having hyperglycemia at least on one occasion during this hospital stay in the context of high dose steroid therapy. Her hemoglobin A1c about 18 months ago was within normal limits. I truly believe it is indicated to pursue a hemoglobin A1c to gain more insight into whether or not she is a diabetic. In the meantime, she can be placed on a low intensity Humalog supplemental scale to cover her needs and also give us an entry to routine blood glucose monitoring until definitive management is established. The patient was counseled about these plans and she agrees to proceed as advised. 2. Hypothyroidism. The patient has a longstanding history of hypothyroidism that has been well controlled on a stable dose of levothyroxine and continues to be so judging by her current thyroid function studies. I will have her continue the same dose. 3. Chronic obstructive pulmonary disease exacerbation. The patient has a baseline chronic obstructive pulmonary disease disorder that requires ongoing glucocorticoid therapy and intermittent oxygen therapy. She is currently suffering an exacerbation of this issue. Active management as per the hospital management team. I certainly appreciate this consultation by Dr. Chávez. <ELECTRONICALLY SIGNED> By: Ros King MD 02/24/19 1200 [id number] [id number] Ros King MD /maribel
[2019-02-24 15:27] VITALS: BP 155/90
--- NOTE | 2019-02-24 15:55 | NUR ---
PT FEELING SAD TODAY..MISSING HER FAMILY AND HER SPOUSE WHO LAST YEAR...PLAN IS HOME WITH HOME HEALTH WHEN STABLE...
[2019-02-24 19:36] VITALS: BP 127/68
[2019-02-25 04:25] VITALS: BP 109/72
[2019-02-25 07:45] LABS: CALCIUM 8.6 mg/dL (8.5-10.1); CREATININE 0.9 mg/dL (0.6-1.0); MAGNESIUM 2.1 mg/dL (1.8-2.4); POTASSIUM 4.2 mmol/L (3.5-5.1)
[2019-02-25 08:34] VITALS: BP 149/78
[2019-02-25 11:40] VITALS: BP 130/69
[2019-02-25 16:01] VITALS: BP 143/83
[2019-02-25 19:40] VITALS: BP 135/70
[2019-02-26 04:08] VITALS: BP 108/55
[2019-02-26 07:27] VITALS: BP 118/56
[2019-02-26 11:08] VITALS: BP 116/71
[2019-02-26 11:13] LABS: ABSOLUTE NEUTROPHILS 8.8 thou/uL (1.4-8.2); BASOPHILS 0.1 % (0.0-2.0); EOSINOPHILS 0.1 % (0.0-3.0); HEMATOCRIT 38.4 % (37.0-47.0); HEMOGLOBIN 12.3 gm/dL (12.0-15.0); LYMPHOCYTES 4.2 % (24.0-44.0); MCH 27.8 pg (26.0-34.0); MCV 86.8 fL (80.0-100.0); PLATELET COUNT 392 thou/uL (150-400); POLYS 92.6 % (36.0-66.0); RBC 4.43 mil/uL (4.20-5.00); RDW 14.8 % (10.5-14.5); WBC 9.5 thou/uL (4.0-11.0)
[2019-02-26 11:34] LABS: ALBUMIN 2.7 g/dL (3.4-5.0); CALCIUM 9.3 mg/dL (8.5-10.1); MAGNESIUM 2.3 mg/dL (1.8-2.4); TOTAL BILIRUBIN 0.3 mg/dL (<0.1-1.0); TOTAL PROTEIN 6.9 g/dL (6.4-8.2)
[2019-02-26 15:33] VITALS: BP 146/61
[2019-02-26 19:56] VITALS: BP 163/93
[2019-02-26 22:10] LABS: ADENOVIRUS Negative (Negative); INFLUENZA A Negative (Negative); INFLUENZA B Negative (Negative); METAPNEUMOVIRUS Negative (Negative); PARAINFLUENZA 1 Negative (Negative); PARAINFLUENZA 2 Negative (Negative); PARAINFLUENZA 3 Negative (Negative); RHINOVIRUS Positive (Negative); RSV A Negative (Negative); RSV B Negative (Negative)
[2019-02-27 04:32] VITALS: BP 139/78
--- NOTE | 2019-02-27 05:14 | NUR ---
SLEPT MOST OF SHIFT. UP TO BATHROOM WITH CANE AND STANDBY ASSIST. WORKING ON GOALS AND PLAN OF CARE FOR NOC. PROGRESSING SLOWLY TOWARDS DISCHARGE GOALS. STATES SHORTNESS OF AIR IS BETTER AND DENIES COMPLAINTS OF PAIN. MAINTAIN SAFE ENVIRONEMENT. CONTINUE TO ASSES.
[2019-02-27 08:00] VITALS: BP 128/62
[2019-02-27 11:58] VITALS: BP 131/61
--- NOTE | 2019-02-27 14:02 | NUR ---
ON-GOING ASSESSMENT: CONSULT WAS PLACED FOR [facility]. CM SPOKE WITH LIASON FROM N WHO STATES THEY ARE STILL CHECKING ON BED STATUS AND UNSURE AT THIS TIME IF THEY CAN ACCEPT PATIENT BUT WILL DEPEND ON STATUS OF BEDS. CM UPDATED PATIENT AND SHE STATES SHE WOULD LIKE TO GO TO [facility] IF ABLE. CM WILL CONTINUE TO FOLLOW TO ASSIST NEEDING AND WAITING TO HEAR BACK FROM [facility].
[2019-02-27 16:28] VITALS: BP 111/56
--- NOTE | 2019-02-27 18:46 | NUR ---
Patient appeared sleepy and stated she was feeling unwell today. She reported a headache this afternoon and was administered Tylenool per PRN order. Patient advised this provided her with partial pain relief.
[2019-02-28 04:37] VITALS: BP 118/55
[2019-02-28 05:43] LABS: ABSOLUTE NEUTROPHILS 7.5 thou/uL (1.4-8.2); BASOPHILS 0.3 % (0.0-2.0); HEMATOCRIT 35.8 % (37.0-47.0); HEMOGLOBIN 11.5 gm/dL (12.0-15.0); LYMPHOCYTES 9.7 % (24.0-44.0); MCH 27.6 pg (26.0-34.0); MCHC 32.1 g/dL (28.0-37.0); MCV 85.9 fL (80.0-100.0); MONOCYTES 8.8 % (1.0-8.0); PLATELET COUNT 354 thou/uL (150-400); POLYS 81.2 % (36.0-66.0); RBC 4.17 mil/uL (4.20-5.00); RDW 14.7 % (10.5-14.5); WBC 9.3 thou/uL (4.0-11.0)
[2019-02-28 06:13] LABS: ALBUMIN 2.2 g/dL (3.4-5.0); CALCIUM 8.5 mg/dL (8.5-10.1); CREATININE 0.8 mg/dL (0.6-1.0); POTASSIUM 4.7 mmol/L (3.5-5.1); TOTAL BILIRUBIN 0.3 mg/dL (<0.1-1.0); TOTAL PROTEIN 5.2 g/dL (6.4-8.2)
--- NOTE | 2019-02-28 06:23 | NUR ---
PT UP TO RESTROOM WITH X1 AND WALKER. EXTENTION TUBING FOR OXYGEN ALLOWS TO GO TO RESTROOM WITH 02. PT REQUEST MEDICATION FOR HEARTBURN, GAVE ZOFRAN WITH GOOD RESULTS. HOURLY ROUNDING. AND FALL PRECAUTIONS IN PLACE.
[2019-02-28 07:37] VITALS: BP 125/60
--- NOTE | 2019-02-28 10:06 | NUR ---
PATIENT SEEN BY FELIPE FERRELL NP WITH DR. GARCIA, ON 02/27/19. PATIENT IS A POTENTIAL CANDIDATE FOR [facility], BUT BED AVAILABILTIY IS LIMITED AT THIS TIME ON [facility]. WILL CONTINUE TO FOLLOW PATIENT AND SEE PATIENT'S LEVEL OF FUNCTION IN THERAPIES. THANK YOU FOR THIS REFERRAL.
--- NOTE | 2019-02-28 10:34 | NUR ---
ON-GOING ASSESSMENT: CM REVIEWED CHART AND MET WITH PT AT THE BEDSIDE. CM SPOKE WITH Avinash MEJIA WHO STATES THEY WILL NOT HAVE A BED AVAILABLE. CM MET WITH PATIENT AND NOTIFIED HER. PT REPORTS FEELING WORSE TODAY AND DOES NOT FEEL SHE WILL BE ABLE TO GO HOME. PT REPORTS SHE HAS BEEN TO [facility] IN THE PAST AND WANTED A REFERRAL SENT THERE. CM FAXED REFERRAL TO [facility].
[2019-02-28 11:29] VITALS: BP 110/51
[2019-02-28 15:18] VITALS: BP 143/70
[2019-02-28 19:57] VITALS: BP 113/56
--- NOTE | 2019-02-28 20:11 | NUR ---
Miss Fields reported her IV site was hurting during her am administration of abx. The rate of administration was slowed. The patient reported further pain after the rate decrease. The infusion was stopped and a new Iv was placed by the IV Team. IV abx were then administered without issue.
[2019-03-01 04:15] VITALS: BP 138/85
[2019-03-01 05:21] LABS: HEMATOCRIT 34.5 % (37.0-47.0); HEMOGLOBIN 11.2 gm/dL (12.0-15.0); MCHC 32.4 g/dL (28.0-37.0); MCV 86.5 fL (80.0-100.0); RBC 3.99 mil/uL (4.20-5.00); RDW 14.9 % (10.5-14.5); WBC 11.9 thou/uL (4.0-11.0)
[2019-03-01 05:39] LABS: ALBUMIN 2.4 g/dL (3.4-5.0); CALCIUM 8.9 mg/dL (8.5-10.1); CREATININE 0.8 mg/dL (0.6-1.0); MAGNESIUM 2.2 mg/dL (1.8-2.4); POTASSIUM 4.4 mmol/L (3.5-5.1); TOTAL BILIRUBIN 0.2 mg/dL (<0.1-1.0); TOTAL PROTEIN 5.4 g/dL (6.4-8.2)
--- NOTE | 2019-03-01 06:50 | NUR ---
FOLLOWING POC WITH BLOOD SUGAR CHECKS. SUGARS WERE LOWER THIS SHIFT THAN PREVIOUS AND PT DID NOT BOTTOM OUT LIKE YESTERDAY SINCE LONG ACTING INSULIN WAS STOPPED. PT UP TO BATHROOM WITH WALKER AND ASSIST X1. VSS, NO COMPLAINTS OF PAIN OR NAUSEA/GERD. HOURLY ROUNDING.
[2019-03-01 08:07] VITALS: BP 107/53
[2019-03-01 11:01] VITALS: BP 136/75
--- NOTE | 2019-03-01 11:28 | NUR ---
Assess for length of stay. Admit with copd exacerbation and CHF. Familiar with pt from prior admits. Pt reports variable appetite, has been eating 25-75% past week. No reported recent wt loss but did used to weigh > 200 lb several years ago. Steroids and hyperglycemia noted with BG up to 212. A1C 5.9. Likes to drink ensure-will order glucerna shakes bid. Otherwise low nutrition risk
--- NOTE | 2019-03-01 12:49 | NUR ---
on-going assessment: CM REVIEWED CHART AND SPOKE WITH ATTENDING. PT IS SLOWLY PROGRESSING TOWARDS DISCHARGE GOALS BUT NOT MEDICALLY STABLE TO LEAVE TODAY. CM NOTIFIED JORGE AND IVORY IN ADMISSION AT [facility]. CM FAXED [facility] TO THEM. CM WILL CONTINUE TO FOLLOW TO ASSIST NEEDED.
--- NOTE | 2019-03-01 13:38 | NUR ---
CONSULTED TO PLACE A MIDLINE FOR A PATIENT NEEDING ACCESS FOR IV ANTIBIOTICS. VERBAL CONSENT OBTAINED FROM THE PATIENT AFTER THE PROCEDURE, BENIFITS AND RISKS WERE DISCUSSED. A #4F POWER MIDLINE WAS PLACED PER HOSPITAL POLICY. THE LINE WAS TRIMMED TO 12CM AND ADVANCED WITHOUT DIFFICULTY. LINE SECRED AND RELEASED FOR USE
[2019-03-01 15:12] VITALS: BP 133/72
--- NOTE | 2019-03-01 19:30 | NUR ---
PT UP TO CHAIR MOST OF THE DAY. WALKED TO BATHROOM WITH SBA AND WALKER. PT VERY ANXIOUS TO GO HOME. PT LUNGS VERY LOUDLY COARSE, PT NOT OVERTLY SOA.
[2019-03-01 19:33] VITALS: BP 136/85
[2019-03-02 03:40] VITALS: BP 118/48
--- NOTE | 2019-03-02 04:13 | NUR ---
ASSUMED CARE OF PT AT 1900. A&OX4, COOPERATIVE. SOA W/ EXERTION DURING WALK TO BR W/ WALKER AND 4L O2. LUNG SOUNDS COURSE THROUGHOUT. PRODUCTIVE COUGH. IS ABLE TO SLEEP. PROGRESSING TOWARDS POC GOALS.
[2019-03-02 05:53] LABS: ABSOLUTE NEUTROPHILS 8.6 thou/uL (1.4-8.2); BASOPHILS 0.4 % (0.0-2.0); HEMATOCRIT 32.5 % (37.0-47.0); HEMOGLOBIN 10.8 gm/dL (12.0-15.0); LYMPHOCYTES 10.4 % (24.0-44.0); MCH 28.3 pg (26.0-34.0); MCHC 33.1 g/dL (28.0-37.0); MCV 85.5 fL (80.0-100.0); MONOCYTES 6.6 % (1.0-8.0); PLATELET COUNT 351 thou/uL (150-400); POLYS 82.6 % (36.0-66.0); RDW 14.3 % (10.5-14.5); WBC 10.5 thou/uL (4.0-11.0)
[2019-03-02 06:10] LABS: ALBUMIN 2.3 g/dL (3.4-5.0); CALCIUM 8.6 mg/dL (8.5-10.1); CREATININE 0.8 mg/dL (0.6-1.0); POTASSIUM 4.3 mmol/L (3.5-5.1); TOTAL BILIRUBIN 0.2 mg/dL (<0.1-1.0); TOTAL PROTEIN 5.6 g/dL (6.4-8.2)
[2019-03-02 07:47] LABS: HCO3 32.5 mmol/L (22.0-26.0); PCO2 50.1 mmHg (35.0-45.0); PO2 84.6 mmHg (80.0-100.0); sO2 96.5 % (92.0-98.0)
[2019-03-02 07:52] VITALS: BP 121/60
--- NOTE | 2019-03-02 11:34 | NUR ---
ON-GOING ASSESSMENT: CM REVIEWED CHART AND SPOKE WITH ATTENDING. PT IS STILL NOT MEDICALLY STABLE FOR DISCHARGE BUT POSSIBLE READY FOR DISCHARGE TO SNF OVER THE WEEKEND. [facility] HAS ACCEPTED PT ONCE MEDICALLY STABLE. IF SHE IS STABLE TO LEAVE OVER THE WEEKEND CONTACT [facility] ADMISSIONS CELL AT [phone] (NOTIFY OF DISCHARGE AND REQUEST THEM TO SET UP TRANSPORTATION) AND FAX DISCHARGE ORDERS TO FAX [phone]. PT WILL NEED TO BE SENT WITH A CHART COPY. IF NOONE ANSWERS THE ADMISSION PHONE NUMBER THEN CALL [facility]ORY AT [facility] AT [phone]. CONTACT PATIENTS SON KRISTOFER TO NOTIFY HIM AT [phone].
--- NOTE | 2019-03-02 15:04 | NUR ---
ON-GOING ASSESSMENT: CM REVIEWED CHART AND SPOKE WITH ATTENDING. PT IS STILL NOT MEDICALLY STABLE FOR DISCHARGE BUT POSSIBLE READY FOR DISCHARGE TO SNF OVER THE WEEKEND. [facility] HAS ACCEPTED PT ONCE MEDICALLY STABLE. IF SHE IS STABLE TO LEAVE OVER THE WEEKEND CONTACT [facility] ADMISSIONS CELL AT [phone] (NOTIFY OF DISCHARGE AND REQUEST THEM TO SET UP TRANSPORTATION) AND FAX DISCHARGE ORDERS TO FAX [phone]. PT WILL NEED TO BE SENT WITH A CHART COPY. IF NOONE ANSWERS THE ADMISSION PHONE NUMBER THEN CALL [facility] AT [facility] AT [phone]. CONTACT PATIENTS SON KRISTOFER TO NOTIFY HIM AT [phone].
--- NOTE | 2019-03-02 15:33 | NUR ---
ASSUMED CARE OF PATIENT AT 0700. VSS. ALERT AND ORIENTED X4. NSR. CURRENTLY ON 4L OXYGEN NC. PATIENT HAS BEEN USING CANE TO AMBULATE, WHICH IS HOW SHE AMBULATES AT HOME. LUNGS CONTINUE TO SOUND COARSE. PATIENT TOLERATING IV ANTIBIOTICS WELL. CONTINUING TO MONITOR.
[2019-03-02 15:46] VITALS: BP 125/72
[2019-03-02 19:05] VITALS: BP 121/69
[2019-03-03 03:11] VITALS: BP 137/75
[2019-03-03 05:09] LABS: HEMATOCRIT 33.4 % (37.0-47.0); HEMOGLOBIN 10.9 gm/dL (12.0-15.0); MCH 28.2 pg (26.0-34.0); MCHC 32.7 g/dL (28.0-37.0); MCV 86.2 fL (80.0-100.0); RBC 3.88 mil/uL (4.20-5.00); RDW 14.2 % (10.5-14.5); WBC 10.8 thou/uL (4.0-11.0)
[2019-03-03 05:12] LABS: CALCIUM 8.7 mg/dL (8.5-10.1); CREATININE 0.7 mg/dL (0.6-1.0); POTASSIUM 4.2 mmol/L (3.5-5.1)
--- NOTE | 2019-03-03 05:39 | NUR ---
PT MAKING SLOW PROGRESS TOWARDS GOALS. ON O2 AT 4L PER NC THROUGHOUT THE NIGHT. UP TO TOILET TWICE WITHOUT SIGNIFICANT SOA WITH ACTIVITY. LUNGS COARSE THROUGHOUT WITH OCCASIONAL CONGESTED COUGH.
[2019-03-03 07:49] VITALS: BP 138/73
--- NOTE | 2019-03-03 16:12 | NUR ---
PT ALERT AND ORIENTED TIMES FOUR. VSS, 98%4L, PT DENIES PAIN/SOA. PT TOLERATES MEDS AND MEALS. PT UP SITTING IN THE CHAIR FOR MOST OF THE SHIFT. PT FAMILY AT BEDSIDE THIS AFTERNOON. PT SLOWLY PROGRESSING TOWRADS POC GOALS.
[2019-03-03 19:45] VITALS: BP 122/63
[2019-03-04 04:30] VITALS: BP 119/66
--- NOTE | 2019-03-04 04:49 | NUR ---
PT MAKING PROGRESS TOWARDS GOALS. LUNGS COARSE THROUGHOUT, CONTINUES TO HAVE CONGESTED COUGH. O2 AT 4L PER NC THROUGHOUT THE NIGHT. DENIES ANY SOA WHEN UP TO TOILET.
[2019-03-04 07:42] VITALS: BP 118/59
[2019-03-04 16:56] VITALS: BP 119/59
--- NOTE | 2019-03-04 18:42 | NUR ---
Patient is slowly working towards her discharge goals. She had issues today making it to the bathrom in time post-lasix administration.
[2019-03-04 20:03] VITALS: BP 112/64
[2019-03-05 03:10] VITALS: BP 108/60
--- NOTE | 2019-03-05 04:12 | NUR ---
encouraged her to drink fluids and deep breath and cough. she is producing sputum tonight. she is resting well, and is good about calling for assist out of bed. denies pain. careplan reviewed.
[2019-03-05 08:05] VITALS: BP 112/54
[2019-03-05 09:32] LABS: HEMATOCRIT 34.7 % (37.0-47.0); MCH 27.2 pg (26.0-34.0); MCHC 31.6 g/dL (28.0-37.0); MCV 86.1 fL (80.0-100.0); RBC 4.03 mil/uL (4.20-5.00); RDW 14.7 % (10.5-14.5); WBC 14.1 thou/uL (4.0-11.0)
[2019-03-05 09:44] LABS: CALCIUM 8.7 mg/dL (8.5-10.1); CREATININE 0.7 mg/dL (0.6-1.0)
--- NOTE | 2019-03-05 15:17 | NUR ---
pt's assessment has done, pt is A&OX3, pt is continuing IV ABX and o2 4 L/min/nc, pt's vs are stable, pt has sob with activities, pt gets up to bathroom with walker, pt gets up to chair now, pt still has coughing , RN has sending sputum culture to Lab per order, PT has slowly meeting care plan goals.
[2019-03-05 16:53] VITALS: BP 116/58
--- NOTE | 2019-03-05 17:48 | HC ---
[facility] [place] [address] CONSULTATION Name: ALEXIS RAMOS Room #: [facility] ADM IN M.R.#: [id number] Admission: 02/22/19 Attend Phys: Betty Mendoza MD Discharge: Date of : 32 Report #: [id number] THIS REPORT FOR: //name// CC: Willis Espinoza MD PULMONARY CONSULTATION PRIMARY PHYSICIAN: Claudio Espinoza MD REASON FOR REFERRAL: Dyspnea, hypoxia. HISTORY OF PRESENT ILLNESS: The patient is an 88-year-old -[place] female who presents to the office with a 5-day history of chills, dyspnea, myalgias. She has a cough, mildly productive of clear sputum. Saturation in the office was ____. On 6 liters, saturation improved to 92%. The patient states that she feels ill, sick. She was willing to come into the hospital. PAST MEDICAL HISTORY: Notable for COPD/asthma overlap, severe impairment with a baseline FEV1 of 0.5 liters or 42% predicted, history of heart failure. PAST SURGICAL HISTORY: Notable for hysterectomy, total knee replacement and thyroidectomy. ALLERGIES: ASPIRIN, which causes GI intolerance; PENICILLIN, reaction not specified. HOME MEDICATIONS: Reviewed. This includes Proventil MDI 2 puffs p.r.n., Symbicort 160 mcg 2 puffs twice a day, Lexapro 10 mg p.o. daily, Neurontin 100 mg p.o. t.i.d., nebulized DuoNebs q.i.d., Synthroid 175 mcg once a day, Singulair 10 mg once a day, GlycoLax 17 grams once a day, prednisone 10 mg once a day and Spiriva 1 capsule once a day. FAMILY HISTORY: Notable for both parents . Otherwise, unremarkable. SOCIAL HISTORY: The patient has smoked about a pack a day for 60 years. She quit in 2018. She denies any alcohol use. She lives with her grandchildren. REVIEW OF SYSTEMS: As mentioned above, otherwise 10-point system review negative. PHYSICAL EXAMINATION: GENERAL: She is awake, alert, in moderate distress. VITAL SIGNS: Temperature is 101.7 degrees Fahrenheit, pulse is 120, respiratory [address] [address] CONSULTATION Name: ALEXIS RAMOS Room #: [address] [place] [address] IN M.R.#: [id number] Admission: 02/22/19 Attend Phys: Betty Mendoza MD Discharge: Date of : 32 Report #: [id number] rate is 24, blood pressure 140/80 mmHg. Saturation on room air is 85%; on 6 liters is 92%. HEENT: Normocephalic, atraumatic. NECK: Supple, without lymphadenopathy or thyromegaly. CHEST: Breath sounds are fair with mild expiratory wheezes. Few scattered crackles in the bases. CARDIOVASCULAR: Normal S1, S2. No murmurs or gallop. There is no JVD, no carotid bruit. Pulses are 2+/4+ bilaterally. ABDOMEN: Soft, nontender, no organomegaly or masses felt. GENITOURINARY: Deferred. RECTAL: Deferred. EXTREMITIES: No cyanosis, clubbing or edema. NEUROLOGIC: She is awake, alert. LABORATORY DATA: Pending. IMPRESSION: 1. Ljyil-wc-nmmjipo hypoxic respiratory failure, probably due to viral syndrome. 2. Viral syndrome along with exacerbation of severe chronic obstructive pulmonary disease. 3. Exacerbation of chronic obstructive pulmonary disease/asthma, severe impairment. 4. Generalized debility and weakness. 5. Medical directive. I have discussed with her regarding code status, at this time she desires a DNR. RECOMMENDATION: Broad-spectrum antibiotics, bronchodilators and steroids are recommended along with DVT and GI prophylaxis. Wean O2 for saturation 90%. We will review chest x-ray when available. Thank you for this consultation. <ELECTRONICALLY SIGNED> By: Kaveh Metz MD 03/05/19 1748 1239 0238 Kaveh Metz MD /nt
[2019-03-05 20:40] VITALS: BP 113/61
--- NOTE | 2019-03-06 04:20 | NUR ---
ENCOURAGED TO DRINK FLUIDS. CALLS APPROP FOR ASSIST OUT OF BED. DENIES PAIN THIS AM. RESTED WELL PER PT REPORT. SHE IS SITTING UP GETTING HER BREATHING TREATMENT. CONTINUES ON 4.0 LITERS O2. CAREPLAN REVIWED
[2019-03-06 04:30] VITALS: BP 143/75
[2019-03-06 07:49] VITALS: BP 119/52
[2019-03-06 11:41] VITALS: BP 123/53
[2019-03-06] MEDS ORDERED: MIRALAX17 GM PO (12:25)
[2019-03-06] MEDS ORDERED: HUMALOG100 UNIT/1 SUBQ (12:26)
[2019-03-06] MEDS ORDERED: GLUCOPHAGE500 MG PO (12:26)
--- NOTE | 2019-03-06 12:49 | NUR ---
PT ALERT AND ORIENTED TIMES FOUR. VSS, 98%2L. PT DENIES PAIN/SOA. PT TOLERATES MEDS AND MEALS. PT UP TO CHAIR FOR MOST OF THE SHIFT. PT SON AT BEDSIDE THIS MORNING. PLANS FOR PT TO DISCHARGE TODAY TO [facility]. PT PROGRESSING TOWRDAS POC GOALS.
--- NOTE | 2019-03-06 13:09 | NUR ---
ON-GOING ASSESSMENT: CM REVIEWED CHART AND SPOKE WITH ATTENDING WHO FEELS PATIENT IS MEDICALLY STABLE FOR DISCHARGE. CM REACHED OUT TO IVORY AT [facility] AND SHE STATES THEY CURRENTLY ARE UNSURE IF THEY CAN TAKE THE PATIENT TODAY STATING THEY ARE TIGHT ON BEDS AND ANOTHER PATIENT IS SUPPOSED TO DISCHARGE TO GO THEM. [facility] STATING THEY SHOULD HAVE A BED OPEN FOR PATIENT TOMORROW OR THEY MAY BE ABLE TO ACCEPT HER LATER THIS EVENING IF THE OTHER DISCHARGE THEY HAVE COMING DOES NOT COME. CM NOTIFIED PATIENTS SON MANUELA WELL ATTENDING. LIKELY DISCHARGE TO [facility] TOMORROW UNLESS BED BECOMES AVAILABLE THIS EVENING. CM FAXED D.C. ORDERS TO [facility] BED BECOMES AVAILABLE AND ORDERED A CHART COPY. CM WILL CONTIUE TO FOLLOW TO ASSIST NEEDED.
[2019-03-06 15:18] VITALS: BP 113/57
[2019-03-06 19:19] VITALS: BP 123/52
--- NOTE | 2019-03-07 03:32 | NUR ---
PATIENT IS ADVANCING IN HER CARE PLAN. VITAL SIGNS STABLE WITH PATIENT HAVING NO COMPLAINTS OF PAIN OR NAUSEA. BREATHING STABLE ON FOUR LITERS NASAL CANNULA EVIDENCED BY ASSESSMENT AND SPOT OXYGENATION CHECKS. FULLY ALERT AND ORIENTED, PATIENT IS ABLE TO CALL APPROPRIATELY FOR NEEDS AND PARTICIPATE IN CARE PLAN. UP MULTIPLE TIMES WITH ASSISTANCE INCIDENT FREE. PATIENT IS EXPECTED TO DISCHARGE TO REHABILITATION SOON. CONTINUE PLAN OF CARE.
[2019-03-07 03:35] VITALS: BP 114/57
[2019-03-07 07:40] VITALS: BP 117/60
[2019-03-07 09:01] LABS: ABSOLUTE NEUTROPHILS 10.4 thou/uL (1.4-8.2); BASOPHILS 0.2 % (0.0-2.0); HEMATOCRIT 35.4 % (37.0-47.0); HEMOGLOBIN 11.3 gm/dL (12.0-15.0); LYMPHOCYTES 8.2 % (24.0-44.0); MCH 27.4 pg (26.0-34.0); MCV 85.5 fL (80.0-100.0); MONOCYTES 3.4 % (1.0-8.0); PLATELET COUNT 336 thou/uL (150-400); POLYS 88.2 % (36.0-66.0); RBC 4.14 mil/uL (4.20-5.00); RDW 14.7 % (10.5-14.5); WBC 11.8 thou/uL (4.0-11.0)
[2019-03-07 09:14] LABS: ALBUMIN 2.6 g/dL (3.4-5.0); CALCIUM 9.1 mg/dL (8.5-10.1); CREATININE 0.8 mg/dL (0.6-1.0); MAGNESIUM 2.3 mg/dL (1.8-2.4); PHOSPHORUS 3.7 mg/dL (2.5-4.9); POTASSIUM 4.5 mmol/L (3.5-5.1); TOTAL BILIRUBIN 0.3 mg/dL (<0.1-1.0); TOTAL PROTEIN 6.1 g/dL (6.4-8.2)
--- NOTE | 2019-03-07 09:48 | NUR ---
on-going assessment: CM REVIEWED CHART AND SPOKE WITH ATTENDING. PT IS TO DISCHARGE TO [facility] TODAY. CM SPOKE WITH JORGE AND IVORY AT [facility] IN ADMISSIONS AND THEY CAN ACCEPT PATIENT TODAY AND TRANSPORTATION HAS BEEN ARRANGED FOR 1200. CM NOTIFIED BEDSIDE RN WELL PATIENTS OMARI BRIGHT. CM PROVIDED BEDSIDE RN WITH THE NUMBER FOR REPORT. CM NOTIFIED CLUB LICENSEE TO UPDATE CHART COPY. CM FAXED D/C ORDERS TO [facility] AND CONFIRMED THEY RECEIVED THEM. PT REPORTS NO FURTHER NEEDS FROM [facility] AT THIS TIME.
[2019-03-07] MEDS ORDERED: MUCINEX600 MG PO (10:07)
[2019-03-07] MEDS ORDERED: MONDOXYNE NL100 MG PO (10:07)
[2019-03-07] MEDS ORDERED: LASIX 20 MG TAB20 MG PO (10:08)
--- NOTE | 2019-03-07 12:53 | NUR ---
Patient's midline was removed and her belongings packed. Patient discharged and left with transport and her son.
== END 2019-03-07 12:32 | DRG 871 ==
LOC: ER 11:35 → 3W 15:03 → EROBS 15:03 → 3W 16:22
PROVIDERS: Emergency Medicine; Hospitalist; Internal Medicine; Nurse Practitioner; Nurse Practitioner Acute Care; Nurse Practitioner Family; Pediatrics; ADMIT Internal Medicine
PROC: 05HY33Z Insertion of Infusion Device into Upper Vein, Percutaneous Approach (ICD-10-PCS; principal; 2019-03-01)
DX: A41.9 Sepsis, unspecified organism (principal); J18.9 Pneumonia, unspecified organism; J96.21 Acute and chronic respiratory failure with hypoxia; I50.33 Acute on chronic diastolic (congestive) heart failure; J44.1 Chronic obstructive pulmonary disease with (acute) exacerbation; J45.901 Unspecified asthma with (acute) exacerbation; E46 Unspecified protein-calorie malnutrition; M43.6 Torticollis; E89.0 Postprocedural hypothyroidism; Z96.659 Presence of unspecified artificial knee joint; F17.210 Nicotine dependence, cigarettes, uncomplicated; M54.30 Sciatica, unspecified side; Z66 Do not resuscitate; B34.9 Viral infection, unspecified; M19.90 Unspecified osteoarthritis, unspecified site; F32.9 Major depressive disorder, single episode, unspecified; E11.65 Type 2 diabetes mellitus with hyperglycemia; K59.00 Constipation, unspecified; E11.649 Type 2 diabetes mellitus with hypoglycemia without coma; B34.8 Other viral infections of unspecified site; E11.42 Type 2 diabetes mellitus with diabetic polyneuropathy; M25.511 Pain in right shoulder; Z99.81 Dependence on supplemental oxygen; Z90.710 Acquired absence of both cervix and uterus; Z79.899 Other long term (current) drug therapy; Z88.6 Allergy status to analgesic agent; Z88.0 Allergy status to penicillin; Z83.3 Family history of diabetes mellitus; Z71.6 Tobacco abuse counseling; Z68.26 Body mass index [BMI] 26.0-26.9, adult; Z23 Encounter for immunization
CPT/HCPCS: 10779; 10879; 27000

== ENCOUNTER 2020-08-29 14:42 | Inpatient (IN) | payer OTHER ==
[~2020-08-29] VITALS: Ht 149.9 cm; Wt 70.3 kg
[~2020-08-29 14:42] MED LIST changes: +GLUCOPHAGE500 MG PO; +HUMALOG100 UNIT/1 SUBQ; +MONDOXYNE NL100 MG PO; +POTASSIUM99 M1 PO
[2020-08-29 14:48] VITALS: BP 125/65
[2020-08-29] MEDS ORDERED: LASIX 40 MG TAB40 MG PO (15:20)
--- NOTE | 2020-08-29 15:39 | EKG ---
[address] [address] ELECTROCARDIOGRAM REPORT Name: KHUSHI RAMOSJORIE Room #: [facility].#: [id number] Admission: Attend Phys: Discharge: Date of : 32 Report #: [id number] [facility] ED Test Date: 2020-08-29 Test Time: 14:50:34 Pat Name: ALEXIS RAMOS Department: Room: Gender: F Spot Sprayer: TROY : [id number] Requested By: Almita James Order Number: [id number] MD: Justin Oviedo Measurements Intervals [place] Rate: 83 P: 56 KS: 185 QRS: -9 QRSD: 80 T: 32 QT: 352 QTc: 414 Interpretive Statements Sinus rhythm Compared to ECG 02/22/2019 11:53:41 Sinus tachycardia no longer present Electronically Signed On 08-29-2020 15:39:23 CDT by Justin Oviedo [email or web address] <ELECTRONICALLY SIGNED> By: Justin Oviedo MD, [facility] 08/29/20 1539 1450 1450 Justin Oviedo MD, FACC /EPI
[2020-08-29 15:41] LABS: ABSOLUTE NEUTROPHILS 6.2 thou/uL (1.4-8.2); BASOPHILS 0.7 % (0.0-2.0); EOSINOPHILS 2.8 % (0.0-3.0); HEMATOCRIT 36.3 % (37.0-47.0); HEMOGLOBIN 12.2 gm/dL (12.0-15.0); LYMPHOCYTES 22.4 % (24.0-44.0); MCH 28.5 pg (26.0-34.0); MCHC 33.6 g/dL (28.0-37.0); MONOCYTES 8.8 % (1.0-8.0); PLATELET COUNT 312 thou/uL (150-400); POLYS 65.3 % (36.0-66.0); RBC 4.27 mil/uL (4.20-5.00); RDW 14.6 % (10.5-14.5); WBC 9.5 thou/uL (4.0-11.0)
[2020-08-29 15:49] LABS: ANION GAP 4 mmol/L (7-16); BUN 7 mg/dL (7-18); CALCIUM 8.7 mg/dL (8.5-10.1); CHLORIDE 105 mmol/L (98-107); CO2 31 mmol/L (21-32); CREATININE 0.8 mg/dL (0.6-1.0); GLUCOSE 81 mg/dL (74-106); POTASSIUM 3.8 mmol/L (3.5-5.1); SODIUM 140 mmol/L (136-145)
[2020-08-29 15:59] LABS: ALBUMIN 2.7 g/dL (3.4-5.0); SGOT 11 U/L (15-37); SGPT 13 U/L (14-59); TOTAL BILIRUBIN 0.5 mg/dL (0.2-1.0); TOTAL PROTEIN 6.8 g/dL (6.4-8.2); TROPONIN-I <0.06 ng/mL (<0.06)
[2020-08-29 18:22] LABS: HCO3 27.9 mmol/L (22.0-26.0); PCO2 43.7 mmHg (35.0-45.0); pH 7.423 (7.360-7.450); sO2 95.1 % (92.0-98.0)
[2020-08-29 18:29] VITALS: BP 123/55
[2020-08-29 19:09] VITALS: BP 108/75
[2020-08-29 20:25] VITALS: BP 121/63
--- NOTE | 2020-08-30 03:39 | NUR ---
ADMISSION ASSESSMENT COMPLETED.CAME UP AT AROUND 2100 HRS,WITH CONGESTED COUGH. PT STILL USING 4L/NC, SOA WITH EXERTION, WHEEZING NOTED. PT GIVEN BREATHING TREATMENT.UP TO THE BATHROOM WITH SBA, VOIDING OK. AFEBRILE.CALL LIGHT WITHIN REACH.
[2020-08-30 07:33] VITALS: BP 113/59
--- NOTE | 2020-08-30 11:11 | NUR ---
Assumed pt care at 7am.Assessment completed.vss.Pt has nagging cough and wheezes allover.RT here for breathing treatment. Pt in bed for breakfast.Am med given and tolerated.Pt c/o cold ,warm blanket given.Dr Jimenez here,order noted.Will continue to monitor.
[2020-08-30 14:44] VITALS: BP 121/61
[2020-08-30 19:44] VITALS: BP 117/59
--- NOTE | 2020-08-31 02:40 | NUR ---
PT CARE ASSUMED WITH PT IN BED RESTING AT SHIFT CHANGE.PT IS A/O X4.PT IS UP WITH STANDBY ASSIST TO THE BATHROOM AND USES A CANE .PT IS ON 3L OF O2 VIA NC AND USES O2 AT HOME FOR COPD.DIET CHANGED FROM HEART HEALTHY TO REGULAR DIET PER PT REQUEST.IV ACCESS ON RT WRIST SL.WILL CONTINUE TO MONITOR
[2020-08-31 07:16] VITALS: BP 115/71
[2020-08-31 09:28] LABS: HEMATOCRIT 37.8 % (37.0-47.0); HEMOGLOBIN 12.1 gm/dL (12.0-15.0); MCH 27.8 pg (26.0-34.0); MCHC 32.1 g/dL (28.0-37.0); MCV 86.4 fL (80.0-100.0); RBC 4.37 mil/uL (4.20-5.00); RDW 14.8 % (10.5-14.5); WBC 8.4 thou/uL (4.0-11.0)
[2020-08-31 09:32] LABS: CALCIUM 9.2 mg/dL (8.5-10.1); CREATININE 0.8 mg/dL (0.6-1.0); MAGNESIUM 1.9 mg/dL (1.8-2.4); POTASSIUM 4.2 mmol/L (3.5-5.1)
--- NOTE | 2020-08-31 14:51 | NUR ---
ASSUMED CARE OF PT AT 0700 THIS MORNING. PT IA ADMITTED FOR ACERBATION AMD SOA WITH COPD. PT WAS LAYING IN BED A/OX4, LUNGS WHEEZING WITH DIMINISHED IN LOWER LOBES BILAT. PT IS ON O2 /NC@3L/HR AND IS ON SAME CONCENTRATION AT HOME. PT IS AMBULATORY AND IS SB ASST. SKIN IS WARM AND DRY NOT TENTING NOTED, CR<3SEC X4. PT IS HOLDING A 96% O2 SAT AT RA AFTER RT GAVE BRATHING TX. PT HAS BEEN OFF THE NC FOR APPROX 2 HRS WITHOUT DROP IN SATURATION. PRIMARY AND SECONDARY ASSESSMENTS OTHERWISE UNREMARKABLE, IV IN RIGHT WRIST, SL. CALL LIGHT AND OTHER NEEDS ARE WITHIN REACH.
[2020-08-31 15:34] VITALS: BP 125/70
[2020-08-31 16:15] VITALS: BP 117/76
--- NOTE | 2020-08-31 17:00 | NUR ---
ASSUMED PT CARE AROUND 1630. PT CAME FROM 4W. PT ALERT X ORIENTED X 4. ON 3L/O2/NC.ON STAND BY ASST. NO C/O PAIN. SLIGHT WHEEZING ON RT UPPER LOBE. REFUSED YELLOW SOCKS AND BAND. WHEN ASKED FIRST, SHE SAID SHE NEEDS SCDS, BUT REFUSED IT WHEN RN TRIED TO PUT IT ON HER SAYING "I WANT TO MOVE FREELY". VSS. ON REGULAR DIET. SITTING COMFORTABLY IN CHAIR. CHAIR ALARM ON.CALL LIGHT IN REACH. WILL CONTINUE TO MONITOR. IV RIGHT WRIST /SALINE LOCKED.
--- NOTE | 2020-08-31 17:50 | NUR ---
Agree with CATALINO Mathis's assessment.
[2020-08-31 18:54] VITALS: BP 134/79
--- NOTE | 2020-09-01 03:35 | NUR ---
PT WAS OBSERVED LYING DOWN IN HER RECLINER WITH HER EYES CLOSED AT SHIFT CHANGE.PT IS A FALL RISK,FALL PRECAUTIONS IN PLACE.PT NOT HAPPY ABOUT THE FALL PRECAUTIONS PUT IN PLACE.PT STATED THAT SHE WAS WALKING AROUND ON HER OWN WHILE ON 4W.EDUCATION GIVEN,PT RELUCTANTLY AGREED.PT CONT ON 2L/NC.PT WITH EXPIRATORY WHEEZING.PO FLUIDS ENCOURAFED.CALL LIGHT WITHIN REACH.
[2020-09-01 03:53] VITALS: BP 124/67
[2020-09-01 05:44] LABS: HEMATOCRIT 35.8 % (37.0-47.0); HEMOGLOBIN 11.6 gm/dL (12.0-15.0); MCHC 32.5 g/dL (28.0-37.0); MCV 86.1 fL (80.0-100.0); RBC 4.16 mil/uL (4.20-5.00); RDW 14.5 % (10.5-14.5); WBC 6.1 thou/uL (4.0-11.0)
[2020-09-01 06:04] LABS: CALCIUM 8.8 mg/dL (8.5-10.1); CREATININE 0.8 mg/dL (0.6-1.0); MAGNESIUM 1.9 mg/dL (1.8-2.4); POTASSIUM 4.5 mmol/L (3.5-5.1)
[2020-09-01 07:58] VITALS: BP 129/70
--- NOTE | 2020-09-01 11:05 | NUR ---
Received awake on bed. Due medications given as prescribed, able to swallow meds w/o difficulty. On O2 at 2lpm via nasal cannula. On MS, not on telemetry; no complains and signs of chest pain, crushing sensation and heaviness. Assisted in ADLs. On regular diet- tolerating well; no nausea, no vomiting and no abdominal pain noted. Continent of bowel and bladder, able to go to the toilet with standby assist, gait belt and cane; falls bundle in place. With R wrist-SL; on IV antibiotics. To continue monitoring patient.
--- NOTE | 2020-09-01 11:07 | NUR ---
ASSESSMENT: CM REVIEWED CHART AND SPOKE WITH PATIENT. PT WAS ADMITTED DUE TO COPD EXACERBATION/WEAKNESS. PT REPORTS THAT SHE CURRENTLY LIVES IN A HOUSE AND HER GRANDDAUGHTER STAYS THERE. SHE REPORTS THAT HER GRANDDAUGHTER IS MOVING OUT SOON. PT REPORTS THAT SHE HAS ABOUT 5 STEPS TO ENTER THE HOME THEN ABOUT 7 STEPS WITH HANDRAIL TO THE KITCHEN/LIVING ROOM AND ANOTHER 7 STEPS WITH HANDRAILS TO THE BEDROOMS. PT STATES HER LAUNDRY IS ON THE BOTTOM FLOOW. PT REPORTS SHE USES A CANE AND WALKER AT TIME FOR AMBULATION. PT REPORTS THAT SHE HAS A SUPPORTIVE SON AND DAUGHTERS BUT SHE STATES SHE TRIES NOT TO BUG THEM. PT REPORTS HER SON IS OVER OFTEN. SHE STATES THEY WILL ASSIST HER WITH THINGS IF NEEDED. PT ALSO HAS OXYGEN ARRANGED AT HOME THROUGH [facility] AND IS NORMALLY ON 3-4L AT BASELINE. PT REPORTS HAVING [facility] IN THE PAST. CM DISCUSSED ROLE. PT IS TO WORK WITH PT/OT. CM DISCUSSED LIKELY NEED OF HH VS SNF. PT REPORTS SHE REFUSES TO GO TO A SNF BUT WOULD BE AGREEABLE FOR HH. SHE STATES TO CONTACT BARBARA GARDUNO [phone] AND ASK HER HER ABOUT HH PREFERENCE. CM CONTACTED HER AND SHE STATES SHE HAS A MEETING THIS EVENING WITH A HH NURSE BUT UNSURE THE AGENCY. CM PROVIDED HER WITH CM CONTACT TO CALL ONCE SHE KNOWS THE AGENCY NAME. CM WILL CONTINUE TO FOLLOW.
[2020-09-01] MEDS ORDERED: PREDNISONE 10 M10 MG PO (13:26)
[2020-09-01] MEDS ORDERED: BENZONATATE100 MG PO (13:26)
[2020-09-01] MEDS ORDERED: DOXYCYCLINE HYC50 MG PO (13:26)
[2020-09-01] MEDS ORDERED: REQUIP 0.25 M0.25 MG PO (13:26)
[2020-09-01] MEDS ORDERED: MUCINEX600 MG PO (13:26)
[2020-09-01 13:54] VITALS: BP 129/70
== END 2020-09-01 15:43 | disposition home health service (06) | DRG 871 ==
LOC: ER 14:42 → 4S 17:18 → EROBS 17:18 → 4W 19:10 → 4S 08-31 15:58
PROVIDERS: Emergency Medicine; ADMIT Internal Medicine; ATTEND Internal Medicine
DX: A41.9 Sepsis, unspecified organism (principal); J96.21 Acute and chronic respiratory failure with hypoxia; G92 Toxic encephalopathy; J18.9 Pneumonia, unspecified organism; J44.1 Chronic obstructive pulmonary disease with (acute) exacerbation; J44.0 Chronic obstructive pulmonary disease with (acute) lower respiratory infection; G62.9 Polyneuropathy, unspecified; F32.9 Major depressive disorder, single episode, unspecified; E66.9 Obesity, unspecified; E03.9 Hypothyroidism, unspecified; Z96.659 Presence of unspecified artificial knee joint; Z20.822 Contact with and (suspected) exposure to COVID-19; Z87.891 Personal history of nicotine dependence; Z90.710 Acquired absence of both cervix and uterus; Z88.8 Allergy status to other drugs, medicaments and biological substances; Z88.0 Allergy status to penicillin; Z68.31 Body mass index [BMI] 31.0-31.9, adult
CPT/HCPCS: 10040; 10195